=== PATIENT | female | born 1990 | race Caucasian/White ===

== ENCOUNTER 2019-07-14 02:39 | Emergency (ER) | payer MEDICAID, SELFPAY ==
[2019-07-14 02:40] VITALS: BP 121/103; PULSE 100; RESP 16; TEMP 36.6; O2SAT 97; BMI 20.9
--- NOTE | 2019-07-14 02:41 | PC.NURSE ---
EMS states patient has been having hallucinations, was found outside naked on a person's porch. EMS states patient was given clothes by the house she was stopped at. EMs states patient has not been answering many questions.Patient states that she was hearing voices earlier but is not hearing them now, patient thats that she is cold and does not remember how she got outside.
[2019-07-14 02:53] VITALS: PULSE 108; RESP 17; O2SAT 98
--- NOTE | 2019-07-14 02:53 | ED_ITS ---
Entered by Kassandra Cali, acting as scribe for New Tran DO Jul 14, 2019 02:39 HPI - Psych General: Chief Complaint: Psychiatric Symptoms Stated Complaint: HALLUCINATIONS Time Seen by Provider: 07/14/19 02:43 Source: patient Mode of arrival: ambulatory Limitations: no limitations History of Present Illness: HPI Narrative: 28 yo f came to the er for hallucinations. Onset was tonight. Pt states that she was seeing and hearing voices. Pt told ems that she snorted some white powder yesterday and that she was naked and going around knocking on neighbors doors. 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) History of same: No Relieving factors: none Exacerbating factors: none Associated symptoms: Reports visual hallucinations Treatments prior to arrival: none Review of Systems Const: Reports: chills; Denies: fever Eyes: Denies: eye discomfort ENMT: Denies: swelling of lips/tongue Card: Denies: chest pain or palpitations Resp: Denies: shortness of breath, productive cough or wheezing GI: Denies: abdominal pain or vomiting Neuro: Denies: headache or dizziness Psych: Reports: anxiety, visual hallucinations and tactile hallucinations PFSH ED PFSH: Statuses (acute, chronic, etc) shown below reflect problem list status as previously entered and may not be historically accurate Social History Smoking and tobacco status: current every day smoker Physical Exam Const: COMMON NORMALS: no apparent distress EXAM LIMITATIONS: altered mental status GENERAL APPEARANCE: comfortable, disheveled and lethargic (mildly); not well hydrated ORIENTATION/CONSCIOUSNESS: Yes awake and Yes lethargic (mildly) HENMT: FACE & SINUS: normal facial exam Chest: COMMONS NORMALS: inspection of chest normal Resp: COMMON NORMALS: normal respiratory effort, no retractions, no use of accessory muscles and clear to auscultation bilaterally AUSCULTATION: clear to auscultation bilaterally Cardio: COMMON NORMALS: regular rate and regular rhythm RATE: regular rate and not tachycardic RHYTHM: regular rhythm GI: COMMON NORMALS: soft to palpation and non-tender PALPATION: Yes soft Extremity: COMMON NORMALS: no pedal edema Neuro: SENSORIUM/ORIENTATION: Yes lethargic (mildly) Psych: COMMON NORMALS: speech normal, denies hallucinations and denies suicidal ideation APPEARANCE: Yes unkempt ACTIVITY/MOTOR BEHAVIOR: Yes appropriate eye contact and Yes restless SPEECH: Yes normal speech THOUGHT CONTENT: No suicidality, No homicidality and Yes hallucination(s) (previously was, now she denies, says this is improved) auditory and visual MDM - Psych MDM Narrative: Medical decision making narrative: 28-year-old female intoxicated on methamphetamine. Evidently, she had not done doors in a neighb orhood, and was found to be nearly unclothed on a porch. EMS was called. She stated that she had been having hallucinations, likely related to a white substance that she snorted yesterday. She is amphetamine positive. Her other labs are relatively benign. She is awake and talking. She is received a liter of fluid. She will be discharged to the custody of a responsible adult. She denies suicidality or homicidality. Lab Data: Labs: Lab Results 07/14/19 07/14/19 07/14/19 Range/Units 03:02 03:02 03:02 WBC 9.8 (4.0-10.0) 10^3/ uL RBC 4.92 (4.1-5.3) 10^6/u L Hgb 14.2 (11.5-15.3) g/dL Hct 43.9 (37.0-47.0) % MCV 89.2 (81-99) fL MCH 28.9 (28.0-34.0) pg MCHC 32.3 (30.0-36.0) g/dL RDW 12.3 (12.1-15.1) % Plt Count 346 (130-400) 10^3/c mm MPV 10.3 (7.4-10.4) fL Neut % (Auto) 64.8 % Lymph % (Auto) 27.9 % [place] % (Auto) 4.7 % Eos % (Auto) 1.4 % Baso % (Auto) 0.8 % Neut # (Auto) 6.3 (1.8-7.7) 10^3/u L Lymph # (Auto) 2.7 (0.8-4.8) 10^3/u L [place] # (Auto) 0.5 (0.2-0.9) 10^3/u L Eos # (Auto) 0.1 (0.0-0.8) 10^3/u L Baso # (Auto) 0.1 (0.0-0.1) 10^3/u L Nucleated RBC % (a uto) 0 % Nucleated RBCs # 0.0 /100WBC Sodium 137 (136-145) mmol/L Potassium 3.3 L (3.5-5.1) mmol/L Chloride 97 L (98-107) mmol/L Carbon Dioxide 22 (22-29) mmol/L Anion Gap 21.3 H (5-19) BUN 14 (6-20) mg/dL Creatinine 0.8 (0.5-0.9) mg/dL GFR Calculation 86.0 L (90-130) mL/min Glucose 95 (65-115) mg/dL Lactate 1.8 (0.5-2.2) mmol/L Calcium 10.4 (8.5-10.5) mg/dL Total Bilirubin 1.0 (0.15-1.2) mg/dL AST 18 (0-32) U/L ALT 12 (0-33) U/L Alkaline Phosphata se 114 H (35-105) IU/L Total Protein 8.0 (6.6-8.7) g/dL Albumin 4.3 (3.5-5.2) g/dL Globulin 3.7 (1.3-4.6) g/dL HCG, Qual (Negative) Urine Color (Yellow) Urine Appearance (CLEAR) Urine pH (5-7) Ur Specific Gravit y (1.005-1.030) Urine Protein (Negative) Urine Glucose (UA) (Normal) Urine Ketones (Negative) Urine Occult Blood (Negative) Urine Nitrate (Negative) Urine Bilirubin (NEGATIVE) Urine Urobilinogen (Negative) mg/dL Ur Leukocyte Evelia ase (Negative) Urine RBC (0-2) /hpf Urine WBC (0-5) /hpf Ur Squamous Epith Cells (0-5) Urine Bacteria (NONE) Urine Mucus Salicylates < 0.3 L (3-10) mg/dL Urine Opiates Scre en (Negative) ng/mL Acetaminophen < 5.0 L (10-30) ug/mL Ur Barbiturates Sc reen (Negative) ng/mL Ur Phencyclidine S crn (Negative) ng/mL Ur Amphetamines Sc reen (Negative) ng/mL U Benzodiazepines Scrn (Negative) ng/mL Urine Cocaine Scre en (Negative) ng/mL U Marijuana (THC) Screen (Negative) ng/mL Ethyl Alcohol < 10 (0-10) mg/dL 07/14/19 07/14/19 07/14/19 Range/Units 03:06 03:06 03:06 WBC (4.0-10.0) 10^3/ uL RBC (4.1-5.3) 10^6/u L Hgb (11.5-15.3) g/dL Hct (37.0-47.0) % MCV (81-99) fL MCH (28.0-34.0) pg MCHC (30.0-36.0) g/dL RDW (12.1-15.1) % Plt Count (130-400) 10^3/c mm MPV (7.4-10.4) fL Neut % (Auto) % Lymph % (Auto) % [place] % (Auto) % Eos % (Auto) % Baso % (Auto) % Neut # (Auto) (1.8-7.7) 10^3/u L Lymph # (Auto) (0.8-4.8) 10^3/u L [place] # (Auto) (0.2-0.9) 10^3/u L Eos # (Auto) (0.0-0.8) 10^3/u L Baso # (Auto) (0.0-0.1) 10^3/u L Nucleated RBC % (a uto) % Nucleated RBCs # /100WBC Sodium (136-145) mmol/L Potassium (3.5-5.1) mmol/L Chloride (98-107) mmol/L Carbon Dioxide (22-29) mmol/L Anion Gap (5-19) BUN (6-20) mg/dL Creatinine (0.5-0.9) mg/dL GFR Calculation (90-130) mL/min Glucose (65-115) mg/dL Lactate (0.5-2.2) mmol/L Calcium (8.5-10.5) mg/dL Total Bilirubin (0.15-1.2) mg/dL AST (0-32) U/L ALT (0-33) U/L Alkaline Phosphata se (35-105) IU/L Total Protein (6.6-8.7) g/dL Albumin (3.5-5.2) g/dL Globulin (1.3-4.6) g/dL HCG, Qual Negative (Negative) Urine Color Yellow (Yellow) Urine Appearance Cloudy (CLEAR) Urine pH 5 (5-7) Ur Specific Gravit y 1.025 (1.005-1.030) Urine Protein Neg (Negative) Urine Glucose (UA) Norm (Normal) Urine Ketones 1+ H (Negative) Urine Occult Blood 2+ H (Negative) Urine Nitrate Negative (Negative) Urine Bilirubin 1+ H (NEGATIVE) Urine Urobilinogen 1 H (Negative) mg/dL Ur Leukocyte Evelia ase 1+ H (Negative) Urine RBC 0-4 H (0-2) /hpf Urine WBC 10-15 H (0-5) /hpf Ur Squamous Epith Cells 0-4 H (0-5) Urine Bacteria 1+ H (NONE) Urine Mucus 2+ Salicylates (3-10) mg/dL Urine Opiates Scre en Negative (Negative) ng/mL Acetaminophen (10-30) ug/mL Ur Barbiturates Sc reen Negative (Negative) ng/mL Ur Phencyclidine S crn Negative (Negative) ng/mL Ur Amphetamines Sc reen Positive H (Negative) ng/mL U Benzodiazepines Scrn Negative (Negative) ng/mL Urine Cocaine Scre en Negative (Negative) ng/mL U Marijuana (THC) Screen Negative (Negative) ng/mL Ethyl Alcohol (0-10) mg/dL Discharge Plan Discharge Patient Disposition: Home, Self-Care Clinical Impression: Substance abuse, Acute psychosis Condition: Stable Prescriptions: No Action No Known Home Medications RF: 0 Discharge Orders: Discharge Order (Routine); Ordered 07/14/19 Ordered By: New Tran Referrals: Charito Burroughs MD [Family Provider] - Discharge Diet: Usual diet Discharge Activity: Increase activity as tolerated Patient Instructions: Methamphetamine Abuse (ED) Activity Restrictions/Additional Instructions: You may be discharged to the custody of a responsible adult. Return to the emergency department for thoughts or wishes to harm your self or others. Coding Level of Care Code ED Cnc Mechanic for Chg Fwd Exam Problem Focused The documentation recorded by the Viraj givens Stephanie Lyn, accurately reflects the service I personally performed and the decisions made by Marc bob Jeremy John, DO Jul 14, 2019 02:39
[2019-07-14 03:14] LABS: Basophils # 0.1 10^3/uL (0.0-0.1); Basophils % 0.8 %; Eosinophils # 0.1 10^3/uL (0.0-0.8); Eosinophils % 1.4 %; Hematocrit 43.9 % (37.0-47.0); Hemoglobin 14.2 g/dL (11.5-15.3); Lymphocytes # 2.7 10^3/uL (0.8-4.8); Lymphocytes % 27.9 %; Mean Corpuscular HGB Conc 32.3 g/dL (30.0-36.0); Mean Corpuscular Hemoglobin 28.9 pg (28.0-34.0); Mean Corpuscular Volume 89.2 fL (81-99); Mean Platelet Volume 10.3 fL (7.4-10.4); Monocytes # 0.5 10^3/uL (0.2-0.9); Monocytes % 4.7 %; Neutrophils # 6.3 10^3/uL (1.8-7.7); Neutrophils % 64.8 %; Nucleated Red Blood Cells % 0 %; Platelet Count 346 10^3/cmm (130-400); Red Blood Count 4.92 10^6/uL (4.1-5.3); Red Cell Distribution Width 12.3 % (12.1-15.1); White Blood Count 9.8 10^3/uL (4.0-10.0)
[2019-07-14 03:29] LABS: Add Urine Microscopic? YES; Bilirubin Urine 1+ (NEGATIVE); Blood Urine 2+ (Negative); Glucose Urine UA Norm (Normal); Ketones Urine 1+ (Negative); Leukocyte Esterase Urine 1+ (Negative); Nitrate Urine Negative (Negative); Protein Urine Neg (Negative); Specific Gravity, Urine 1.025 (1.005-1.030); Urine Appearance Cloudy (CLEAR); Urine Color Yellow (Yellow); Urobilinogen Urine 1 mg/dL (Negative); pH Urine 5 (5-7)
[2019-07-14 03:30] LABS: Bacteria Urine 1+; HCG Qualitative Urine. Negative (Negative); Mucus Urine 2+; RBC Urine 0-4 /hpf (0-2); Squamous Epithelial Cell Urine 0-4 (0-5)
[2019-07-14 03:38] LABS: Lactate (Lactic Acid level) 1.8 mmol/L (0.5-2.2)
[2019-07-14 03:39] LABS: Alanine Aminotransferase 12 U/L (0-33); Albumin Level 4.3 g/dL (3.5-5.2); Alkaline Phosphatase 114 IU/L (35-105); Anion Gap 21.3 (5-19); Aspartate Amino Transferase 18 U/L (0-32); Blood Urea Nitrogen 14 mg/dL (6-20); Calcium 10.4 mg/dL (8.5-10.5); Carbon Dioxide 22 mmol/L (22-29); Chloride 97 mmol/L (98-107); Globulin 3.7 g/dL (1.3-4.6); Glucose 95 mg/dL (65-115); Potassium 3.3 mmol/L (3.5-5.1); Sodium 137 mmol/L (136-145)
[2019-07-14] MEDS: sodium chloride 0.9% 1,000 ML 999 ML IV (03:39)
[2019-07-14 03:40] LABS: Barbiturates Screen Urine Negative (Negative); Benzodiazepines Screen Urine Negative (Negative); Cocaine Screen Urine Negative (Negative); Opiate Screen Urine Negative (Negative); PCP Screen Urine Negative (Negative); THC Screen Urine Negative (Negative)
--- NOTE | 2019-07-14 03:45 | PC.NURSE ---
patient requested food and was brought food and water by the nurse
[2019-07-14 03:50] LABS: Acetaminophen < 5.0 ug/mL (10-30); Alcohol Level < 10 mg/dL (0-10); Salicylate < 0.3 mg/dL (3-10)
[2019-07-14 03:52] LABS: Amphetamines Screen Urine Positive (Negative)
--- NOTE | 2019-07-14 05:48 | PC.NURSE ---
patient oxygen titrated up to 4 liters
--- NOTE | 2019-07-14 05:48 | PC.NURSE ---
oxygen titrated up to 5 liters for optimal oxygenation of patient
[2019-07-14 06:35] VITALS: BP 108/60; PULSE 94; RESP 16; O2SAT 97
--- NOTE | 2019-07-14 07:49 | PC.NURSE ---
Patient resting in bed with both eyes closed. Attempted to contact Alphonso Garcia, whom patient stated was her uyen at , there is no answer and no voicemail set up to leave a message.
[2019-07-14 09:01] VITALS: BP 116/79; PULSE 104; RESP 14; TEMP 36.8; O2SAT 98
== END 2019-07-14 09:03 | disposition home or self-care (01) ==
PROVIDERS: Emergency Provider Emergency Medicine; Family Provider Family Medicine
DX: F15.10 Other stimulant abuse, uncomplicated (principal); F23 Brief psychotic disorder; F17.210 Nicotine dependence, cigarettes, uncomplicated
CPT/HCPCS: 80053; 80307; 81001; 81025; 83605; 85025; 96360; 99284; A9270; J7030

== ENCOUNTER 2019-09-24 00:09 | Inpatient (IN) | payer MEDICAID, SELFPAY ==
[2019-09-24 00:18] VITALS: BP 130/86; PULSE 93; RESP 16; TEMP 36.6; O2SAT 98; BMI 20.9
--- NOTE | 2019-09-24 00:30 | ECG_ITS ---
Measurements Intervals [place] Rate: 95 P: 51 KS: 171 QRS: 53 QRSD: 76 T: 52 QT: 361 QTc: 456 SINUS RHYTHM POSSIBLE LEFT ATRIAL ENLARGEMENT [-0.1mV P WAVE IN V1/V2] Compared to ECG 04/17/2019 18:15:48 Sinus tachycardia no longer present Electronically Signed On 09-25-2019 6:44:43 CDT by Zak Mo M.D. [email or web address]
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
[2019-09-24 00:49] LABS: Basophils # 0.1 10^3/uL (0.0-0.1); Basophils % 0.6 %; Eosinophils # 0.1 10^3/uL (0.0-0.8); Eosinophils % 0.8 %; Hematocrit 42.3 % (37.0-47.0); Hemoglobin 13.7 g/dL (11.5-15.3); Lymphocytes # 3.1 10^3/uL (0.8-4.8); Lymphocytes % 27.6 %; Mean Corpuscular HGB Conc 32.4 g/dL (30.0-36.0); Mean Corpuscular Hemoglobin 29.8 pg (28.0-34.0); Mean Platelet Volume 10.2 fL (7.4-10.4); Monocytes # 0.7 10^3/uL (0.2-0.9); Monocytes % 6.2 %; Neutrophils # 7.3 10^3/uL (1.8-7.7); Neutrophils % 64.5 %; Nucleated Red Blood Cells % 0 %; Platelet Count 314 10^3/cmm (130-400); Red Cell Distribution Width 12.9 % (12.1-15.1); White Blood Count 11.4 10^3/uL (4.0-10.0)
[2019-09-24 00:57] LABS: HCG, Serum Qual Negative (Negative)
[2019-09-24 01:03] LABS: Alanine Aminotransferase 10 U/L (0-33); Albumin Level 4.6 g/dL (3.5-5.2); Alkaline Phosphatase 104 IU/L (35-105); Anion Gap 18.6 (5-19); Aspartate Amino Transferase 19 U/L (0-32); Blood Urea Nitrogen 22 mg/dL (6-20); Calcium 10.3 mg/dL (8.5-10.5); Carbon Dioxide 23 mmol/L (22-29); Chloride 101 mmol/L (98-107); Globulin 2.9 g/dL (1.3-4.6); Glomerular Filtration Rate 74.6 mL/min (90-130); Glucose 88 mg/dL (65-115); Osmolality Calculated 284 mOsm/kg (285-295); Potassium 3.6 mmol/L (3.5-5.1); Sodium 139 mmol/L (136-145); Total Bilirubin 0.4 mg/dL (0.15-1.2); Total Protein 7.5 g/dL (6.6-8.7)
[2019-09-24 01:06] LABS: Acetaminophen < 5.0 ug/mL (10-30); Alcohol Level < 10 mg/dL (0-10); Salicylate < 0.3 mg/dL (3-10); Troponin T (5th) Once 7 ng/mL (0-10)
[2019-09-24 01:11] LABS: Amphetamines Screen Urine Positive (Negative); Barbiturates Screen Urine Negative (Negative); Benzodiazepines Screen Urine Negative (Negative); Cocaine Screen Urine Negative (Negative); Opiate Screen Urine Negative (Negative); PCP Screen Urine Negative (Negative); THC Screen Urine Negative (Negative)
[2019-09-24 02:50] VITALS: BMI 20.9
[2019-09-24 03:03] VITALS: BP 123/65; PULSE 108; RESP 18; TEMP 36.8; O2SAT 99
[2019-09-24 03:09] VITALS: BP 116/60; PULSE 84; RESP 14; O2SAT 99
[2019-09-24 06:00] VITALS: BP 123/65; PULSE 108; RESP 18; TEMP 36.8; O2SAT 99
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
[2019-09-24 14:00] VITALS: BP 94/62; PULSE 80; RESP 18; TEMP 37.1; O2SAT 99
[2019-09-24] MEDS: nicotine 2 mg Gum BUCCAL ×2 (17:56→20:47)
[2019-09-24 22:00] VITALS: BP 94/62; PULSE 86; RESP 17; TEMP 36.7; O2SAT 97
[2019-09-25 06:00] VITALS: BP 113/66; PULSE 69; RESP 16; TEMP 36.7; O2SAT 93
[2019-09-25] MEDS: sertraline 50 mg Tablet PO (09:06)
[2019-09-25 13:22] VITALS: BP 113/72; PULSE 76; RESP 18; TEMP 37; O2SAT 100
--- NOTE | 2019-09-25 14:30 | PM.NPN ---
Subjective NPU Subjective: Interval history: Jen presents today reporting that she is really excited about the fact that [facility] has started reconsidering its situation and plans on accepting her as a patient on Sunday. She is managing the restarting of her medication and saying there are no side effects, and she is tolerating it fine. We discussed the risks, benefits, and alternatives of managing her until Sunday when they will have the bed available, versus discharge, and she understood and agreed to proceed as is documented in this note. She was concerned about a close friend that is on the unit and hoping that we might find a similar resource for him. Mental Status Exam MSE Comments: This is a well-nourished, well-developed, white female, with adequate dress, grooming, and eye contact. No abnormal movements. Cooperative with exam in no acute distress. Speech was normal rate and volume. Mood described as better; affect congruent. Thought process, organized. Thought content: patient denied any suicidal or homicidal ideation, there were no delusions reported or noted, she denied any auditory or visual hallucinations. Attention, concentration, and memory appeared intact but were not formally tested. She is alert and oriented times three. Insight and judgment are good. Vitals/I&O/Wt Last Vital Signs Temp 98.7 F 09/25/19 20:26 Pulse 76 09/25/19 20:26 Resp 17 09/25/19 20:26 BP 121/85 09/25/19 20:26 Pulse Ox 98 09/25/19 20:26 Data NPU : 09/24/19 00:40 09/24/19 00:40 A&P Additional A&P Information (1) Methamphetamine use: This is a 29 year old, white female, with history of depressive and anxiety disorder, unspecified, methamphetamine use disorder, severe, rule out methamphetamine induced mood and anxiety disorders, who presents with a recent relapse and suicidal thoughts hoping to get her recovery back on track. continue current medication. Encourage individual and milieu therapies. Continue q 15-minute checks for safety. Work to maintain until discharge to [facility] Sunday (2) Suicidal ideation: (3) Depression: Involuntary Hold Information 96 Hour Hold: 96 Hour Involuntary Admission: No Attestations NPU Medical Necessity Statement*: Inpatient hospitalization is medically necessary and the clinically appropriate intervention at this time. We will monitor medications and titrate as indicated. Plan for discharge 4/28. Coding Level of Care Code Acute Pricing Strategist for Yoel Frausto
[2019-09-25] MEDS: nicotine 2 mg Gum BUCCAL (17:05)
[2019-09-25 20:26] VITALS: BP 121/85; PULSE 76; RESP 17; TEMP 37.1; O2SAT 98
[2019-09-26 06:00] VITALS: BP 112/73; PULSE 56; RESP 16; TEMP 36.9; O2SAT 98
[2019-09-26] MEDS: sertraline 50 mg Tablet PO (09:05)
--- NOTE | 2019-09-26 10:17 | P.PN_ITS ---
Subjective NPU Subjective: Interval history: Jen presents today reporting that she is feeling okay/a little better, and she is excited about the opportunity to stay here until Sunday when she goes to rehab. She endorses a plan to do the time there and follow that up with some kind of sober living, maybe even a really skilled nursing one in hopes that she can ultimately avoid repeating history. She reports she is eating okay, and she is sleeping better. Mental Status Exam MSE Comments: This is a well-nourished, well-developed, white female, with adequate dress, grooming, and eye contact. No abnormal movements. Cooperative with exam in no acute distress. Speech was normal rate and volume. Mood described as a lot better; affect congruent. Thought process, organized. Thought content: patient denied any suicidal or homicidal ideation, there were no delusions reported or noted, patient denied any auditory or visual hallucinations. Attention, concentration, and memory appeared intact but were not formally tested. Alert and oriented times three. Insight and judgment are fair. Impulse control limited. Vitals/I&O/Wt Last Vital Signs Temp 98.4 F 09/26/19 21: Pulse 70 09/26/19 21:22 Resp 18 09/26/19 21:22 BP 132/90 09/26/19 21: Pulse Ox 98 09/26/19 21:22 Data NPU : 09/24/19 00:40 09/24/19 00:40 A&P Additional A&P Information (1) Methamphetamine use: This is a 29 year old, white female, with history of depressive and anxiety disorder, unspecified, methamphetamine use disorder, severe, rule out methamphetamine induced mood and anxiety disorders, who presents with a recent relapse and suicidal thoughts hoping to get her recovery back on track. continue current medication. Encourage individual and milieu therapies. Continue q 15-minute checks for safety. Work to maintain until discharge to [facility] Sunday (2) Suicidal ideation: (3) Depression: Involuntary Hold Information 96 Hour Hold: 96 Hour Involuntary Admission: No Attestations NPU Medical Necessity Statement*: Inpatient hospitalization is medically necessary and the clinically appropriate intervention at this time. We will monitor medications and titrate as indicated. Plan for discharge 09/29. Coding Level of Care Code Acute Applique Cutter for Yoel Frausto
[2019-09-26 13:07] VITALS: BP 116/78; PULSE 82; RESP 18; TEMP 37; O2SAT 98
[2019-09-26 21:22] VITALS: BP 132/90; PULSE 70; RESP 18; TEMP 36.9; O2SAT 98
[2019-09-27 06:00] VITALS: BP 110/65; PULSE 64; RESP 18; TEMP 37; O2SAT 97
[2019-09-27 14:00] VITALS: BP 126/84; PULSE 97; RESP 18; O2SAT 98
[2019-09-27] MEDS: nicotine 2 mg Gum BUCCAL (17:56)
--- NOTE | 2019-09-27 19:17 | P.PN_ITS ---
Subjective NPU Subjective: Interval history: Jen presents today reporting that she is feeling better each day. She continues to feel optimistic about her plans for turning her life around. She is looking forward to getting through the boring monotony of the unit, given the COVID circumstances, with a plan to get to treatment and ultimately sober living after that. She denies any issues with restarting of Zoloft and reports that she is eating and sleeping well. Mental Status Exam MSE Comments: This is a well-nourished, well-developed, white female, with adequate dress, grooming, and eye contact. No abnormal movements. Cooperative with exam in no acute distress. Speech was normal rate and volume. Mood described as pretty good; affect congruent. Thought process, organized. Thought content: patient denied any suicidal or homicidal ideation, there were no delusions reported or noted, patient denied any auditory or visual hallucinations. Attention, concentration, and memory appeared intact but were not formally tested. Alert and oriented times three. Insight and judgment are improving and impulse control improving. Vitals/I&O/Wt Last Vital Signs Temp 98.6 F 09/27/19 06:00 Pulse 97 09/27/19 14:00 Resp 18 09/27/19 14:00 BP 126/84 09/27/19 14:00 Pulse Ox 98 09/27/19 14:00 Data NPU : 09/24/19 00:40 09/24/19 00:40 A&P Additional A&P Information (1) Methamphetamine use: This is a 29 year old, white female, with history of depressive and anxiety disorder, unspecified, methamphetamine use disorder, severe, rule out methamphetamine induced mood and anxiety disorders, who presents with a recent relapse and suicidal thoughts hoping to get her recovery back on track. continue current medication. Encourage individual and milieu therapies. Continue q 15-minute checks for safety. Work to maintain until discharge to [facility] Sunday (2) Suicidal ideation: (3) Depression: Involuntary Hold Information 96 Hour Hold: 96 Hour Involuntary Admission: No Attestations NPU Medical Necessity Statement*: Inpatient hospitalization is medically necessary and the clinically appropriate intervention at this time. We will monitor medications and titrate as indicated. Plan for discharge 09/29. Coding Level of Care Code Acute Television Engineering Teacher for Yoel Frausto
[2019-09-27] MEDS: hyDROXYzine 25 mg Capsule 50 MG PO (20:15)
[2019-09-27] MEDS: trazodone 50 mg Tablet PO (20:15)
--- NOTE | 2019-09-27 21:09 | PC.NURSE ---
PRN MEDICATIONS PRN TRAZODONE 50 MG AND HYDROXYZINE 50 MG GIVEN PER ORDERS AT 2018 PER PtS REQUEST TO HELP THEM SLEEP. THIS NURSE CHECKED ON Pt AT 2105, Pt RESTING IN BED, EYES CLOSED, RESPIRATIONS EVEN AND UNLABORED.
[2019-09-27 22:00] VITALS: BP 104/71; PULSE 72; RESP 16; TEMP 37; O2SAT 98
[2019-09-28 06:00] VITALS: BP 103/66; PULSE 63; RESP 16; TEMP 36.1; O2SAT 97
[2019-09-28 14:00] VITALS: BP 132/89; PULSE 88; RESP 18
--- NOTE | 2019-09-28 17:11 | PM.NPN ---
Subjective NPU Subjective: Interval history: Jen presents today reporting that it is boring, but she knows that this is the path to her getting where she needs to be. She was somewhat saddened by the fact that she figured out that her ?cousin/really close friend? that was on the male side left prior to really getting tied with inpatient services and she really wished he would have stayed because she feels like he is dealing with the same stuff she is dealing with, and she does not feel like he will be able to do it independently, but as we discussed we are not going anywhere and if he comes back we can continue to assist him. She continues to endorse a plan to follow through with our plan for discharge on Sunday to inpatient rehab. She denies any issues with her medication. Mental Status Exam MSE Comments: This is a well-nourished, well-developed, white female, with adequate dress, grooming, and eye contact. No abnormal movements. Cooperative with exam in no acute distress. Speech was normal rate and volume. Mood described as pretty good; affect congruent. Thought process, organized. Thought content: patient denied any suicidal or homicidal ideation, there were no delusions reported or noted, patient denied any auditory or visual hallucinations. Attention, concentration, and memory appeared intact but were not formally tested. Alert and oriented times three. Insight and judgment are good. Vitals/I&O/Wt Last Vital Signs Temp 97 F L 09/28/19 06:00 Pulse 88 09/28/19 14:00 Resp 18 09/28/19 14:00 BP 132/89 09/28/19 14:00 Pulse Ox 97 09/28/19 06:00 Weight last 48 hrs Weight 70.307 kg Data NPU : 09/24/19 00:40 09/24/19 00:40 A&P Additional A&P Information (1) Methamphetamine use: This is a 29 year old, white female, with history of depressive and anxiety disorder, unspecified, methamphetamine use disorder, severe, rule out methamphetamine induced mood and anxiety disorders, who presents with a recent relapse and suicidal thoughts hoping to get her recovery back on track. continue current medication. Encourage individual and milieu therapies. Continue q 15-minute checks for safety. Work to maintain until discharge to [facility] Sunday (2) Suicidal ideation: (3) Depression: Involuntary Hold Information 96 Hour Hold: 96 Hour Involuntary Admission: No Attestations NPU Medical Necessity Statement*: Inpatient hospitalization is medically necessary and the clinically appropriate intervention at this time. We will monitor medications and titrate as indicated. Plan for discharge 09/29. Coding Level of Care Code Acute Sow Farm Barn Technician for Yoel Frausto
[2019-09-28] MEDS: trazodone 50 mg Tablet PO (20:20)
[2019-09-28 22:00] VITALS: BP 101/64; PULSE 70; RESP 22; TEMP 37; O2SAT 97
[2019-09-29 06:00] VITALS: BP 91/59; PULSE 69; RESP 18; TEMP 36.9; O2SAT 98
--- NOTE | 2019-09-29 09:13 | PM.NPN ---
Subjective NPU Subjective: Interval history: Jen presents today reporting that things are going fine. She was somewhat overwhelmed by the activities on the unit but endorsed that she was fine. She is excited about the opportunity to go to the sober living facility tomorrow, and she is thankful for the treatment teams continued efforts with her. She reports that she is eating and sleeping fine. Mental Status Exam MSE Comments: This is a well-nourished, well-developed, white female, with adequate dress, grooming, and eye contact. No abnormal movements. Cooperative with exam in no acute distress. Speech was normal rate and volume. Mood described as pretty good; affect congruent. Thought process, organized. Thought content: patient denied any suicidal or homicidal ideation, there were no delusions reported or noted, she denied any auditory or visual hallucinations. Attention, concentration, and memory appeared intact but were not formally tested. She is alert and oriented times three. Insight and judgment are fair to good. Vitals/I&O/Wt Last Vital Signs Temp 98.6 F 09/29/19 21:37 Pulse 76 09/29/19 21:37 Resp 17 09/29/19 21:37 BP 102/70 09/29/19 21:37 Pulse Ox 97 09/29/19 21:37 Data NPU : 09/24/19 00:40 09/24/19 00:40 A&P Additional A&P Information (1) Methamphetamine use: This is a 29 year old, white female, with history of depressive and anxiety disorder, unspecified, methamphetamine use disorder, severe, rule out methamphetamine induced mood and anxiety disorders, who presents with a recent relapse and suicidal thoughts hoping to get her recovery back on track. continue current medication. Encourage individual and milieu therapies. Continue q 15-minute checks for safety. Work to maintain until discharge to [facility] Tomorrow (2) Suicidal ideation: (3) Depression: Involuntary Hold Information 96 Hour Hold: 96 Hour Involuntary Admission: No Attestations NPU Medical Necessity Statement*: Inpatient hospitalization is medically necessary and the clinically appropriate intervention at this time. We will monitor medications and titrate as indicated. Plan for discharge tomorrow. Coding Level of Care Code Acute Junior Sales Assistant for Yoel Frausto
[2019-09-29 13:55] VITALS: BP 105/70; PULSE 84; RESP 18; TEMP 36.8; O2SAT 98
[2019-09-29] MEDS: hyDROXYzine 25 mg Capsule 50 MG PO (20:40)
--- NOTE | 2019-09-29 21:13 | PC.NURSE ---
At 2046, pt given PRN Vistril to aide in sleep.
[2019-09-29 21:37] VITALS: BP 102/70; PULSE 76; RESP 17; TEMP 37; O2SAT 97
[2019-09-30 06:00] VITALS: BP 110/74; PULSE 56; RESP 16; TEMP 36.8; O2SAT 99
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
[2019-09-30 10:48] VITALS: BP 110/74; PULSE 56; RESP 16; TEMP 36.8; O2SAT 99
[2019-09-30] MEDS: sertraline 50 mg Tablet PO (10:53)
== END 2019-09-30 11:15 | disposition home or self-care (01) | DRG 897 ==
LOC: ER 01:29 → NP 02:24
PROVIDERS: Admitting Provider Psychiatry & Neurology Psychiatry; Emergency Provider Physician Assistant; Family Provider Family Medicine; Visit Provider Psychiatry & Neurology Psychiatry
DX: F15.229 Other stimulant dependence with intoxication, unspecified (principal); R45.851 Suicidal ideations; F32.9 Major depressive disorder, single episode, unspecified; F17.210 Nicotine dependence, cigarettes, uncomplicated
CPT/HCPCS: 12345; 80053; 80306; 80307; 84484; 84703; 85025; 93005; 99284

== ENCOUNTER 2019-09-24 00:09 | Emergency (ER) | payer MEDICAID, SELFPAY | END 2019-09-24 02:30 | disposition admitted as inpatient to this hospital (09) | LOC: ER 09-26 06:53 | PROVIDERS: Emergency Provider Physician Assistant; Family Provider Family Medicine | DX: R45.851 Suicidal ideations (principal); F15.90 Other stimulant use, unspecified, uncomplicated; F17.210 Nicotine dependence, cigarettes, uncomplicated | CPT/HCPCS: 80053; 80306; 80307; 84484; 84703; 85025; 93005; 99284; 99285 ==

== ENCOUNTER → 2019-10-31 15:18 | Outpatient (BNVA) | payer MEDICAID, SELFPAY | PROVIDERS: Family Provider Family Medicine; Visit Provider Nurse Practitioner Women's Health | DX: Z32.00 Encounter for pregnancy test, result unknown (principal); Z30.46 Encounter for surveillance of implantable subdermal contraceptive; Z30.09 Encounter for other general counseling and advice on contraception | CPT/HCPCS: 81025 ==

== ENCOUNTER 2019-12-15 20:36 | Inpatient (IN) | payer MEDICAID, SELFPAY ==
--- NOTE | 2019-12-15 20:44 | XRR_ITS ---
PROCEDURE INFORMATION: Exam: XR Chest, 1 View Exam date and time: 12/15/2019 9:22 PM Age: 29 years old Clinical indication: Fever; Additional info: Fever, hallucinations TECHNIQUE: Imaging protocol: XR of the chest Views: Frontal portable upright view of the chest. COMPARISON: CR Chest 1 [place] [id number] 04/05/2019 11:53 PM FINDINGS: Lungs: The lungs are clear bilaterally. The pulmonary vasculature is normal. Pleural space: No pleural effusion. No pneumothorax. Heart/Mediastinum: The heart is normal in size and contour. Mediastinum: Stable. Bones/joints: Stable. XR/XR chest 1V portable [id number] IMPRESSION: No acute cardiopulmonary abnormality identified.
[2019-12-15 21:01] LABS: Basophils # 0.1 10^3/uL (0.0-0.1); Basophils % 0.8 %; Eosinophils # 0.2 10^3/uL (0.0-0.8); Eosinophils % 2.5 %; Hematocrit 47.1 % (37.0-47.0); Hemoglobin 15.6 g/dL (11.5-15.3); Lymphocytes # 3.6 10^3/uL (0.8-4.8); Lymphocytes % 37.6 %; Mean Corpuscular HGB Conc 33.1 g/dL (30.0-36.0); Mean Corpuscular Hemoglobin 30.8 pg (28.0-34.0); Mean Corpuscular Volume 93.1 fL (81-99); Mean Platelet Volume 10.2 fL (7.4-10.4); Monocytes # 0.7 10^3/uL (0.2-0.9); Neutrophils # 5.03 10^3/uL (1.8-7.7); Neutrophils % 51.9 %; Nucleated Red Blood Cells % 0 %; Platelet Count 315 10^3/cmm (130-400); Red Blood Count 5.06 10^6/uL (4.1-5.3); Red Cell Distribution Width 12.4 % (12.1-15.1); White Blood Count 9.7 10^3/uL (4.0-10.0)
[2019-12-15 21:06] VITALS: BP 129/93; PULSE 104; RESP 14; TEMP 36.8; O2SAT 98; BMI 23.3
[2019-12-15 21:21] LABS: Lactic Sepsis W/Reflex 1.5 mmol/L (0.5-2.2)
[2019-12-15 21:28] VITALS: RESP 16
[2019-12-15 21:29] LABS: HCG, Serum Qual Negative (Negative)
--- NOTE | 2019-12-15 21:29 | W.ED.PSYCH ---
HPI - Psych General: Chief Complaint: Psychiatric Symptoms Stated Complaint: fever, hallucinations Time Seen by Provider: 12/15/19 21:16 Source: patient Mode of arrival: ambulatory Limitations: no limitations History of Present Illness: HPI Narrative: Patient is a 29-year-old female who presents to ED today with a complaint of auditory and visual hallucinations. Patient tells me she is having voices that are telling her to take her clothes off and telling her to harm herself. She states when she looks at people their faces often change. She states her face also will change when she looks in different mirrors. She states she feels suicidal and has a plan to place her head on railroad tracks so her head can bounce around like a soccer ball . Patient is not homicidal. She does admit to recent methamphetamine relapse. She states she has been off of her Zoloft, Hydroxyzine and Remeron for approximately a month. Patient does complain of feeling hot over the past few weeks. She has no known documented fevers. MD complaint: suicidal ideation, feels depressed and other (hallucinations ) Onset (ago): day(s) Duration: constant History of same: Yes Relieving factors: none Exacerbating factors: none Context: recent drug abuse and not taking psychiatric medications Associated symptoms: Reports auditory hallucinations, visual hallucinations, depression and suicidal ideation; Deny homicidal ideation Review of Systems Const: Denies: fever(s), chills, body aches, fatigue or malaise Card: Denies: chest pain, palpitations, lightheadedness or syncope Resp: Denies: dyspnea GI: Denies: abdominal pain, nausea, vomiting or diarrhea Musc: Denies: neck pain or back pain Skin/Breast: Denies: rash Neuro: Denies: headache(s) Psych: Reports: anxiety, depression, hopelessness, visual hallucinations, auditory hallucinations and suicidal ideation; Denies: homicidal ideation [facility] ED PFSH: Medical History (Updated 12/15/19 @ 23:53 by ALYSSA Arellano) Depression Methamphetamine use Surgical History (Updated 10/31/19 @ 15:27 by Lisa Freedman APN, ISHAN) H/O pelvic surgery (~2018) fractured pelvis, skull, neck--- only pelvis needed repair Family History (Updated 10/31/19 @ 15:28 by Lisa Freedman APN, ISHAN) Mother Cancer B- cell lymphoma Father Cancer Lung CA Hypertension Denies family history of Diabetes Clotting disorder Hyperlipidemia Chronic kidney disease (CKD) Bleeding disorder Stroke Social History Smoking and tobacco status: current some day smoker Quit status (tobacco): has quit using tobacco Year quit tobacco: 09/2019 Alcohol intake: never Current gender identity: Female Physical Exam Const: COMMON NORMALS: no acute distress, patient oriented x3, alert and well nourished GENERAL APPEARANCE: cooperative and well kempt Resp: COMMON NORMALS: normal respiratory effort and clear to auscultation bilaterally AUSCULTATION: clear to auscultation bilaterally Cardio: COMMON NORMALS: regular rate and regular rhythm RATE: regular rate RHYTHM: regular rhythm Neuro: COMMON NORMALS: patient oriented x3 SENSORIUM/ORIENTATION: Yes alert Psych: COMMON NORMALS: mental status grossly normal, Normal thought process present, cooperative, normal affect, speech normal and activity/motor behavior normal APPEARANCE: Yes grossly normal and Yes well kempt ATTITUDE: Yes calm ACTIVITY/MOTOR BEHAVIOR: No psychomotor agitation and Yes Avoids eye contact (attititude/behavior) SPEECH: Yes normal speech MOOD & AFFECT: Yes euthymic mood THOUGHT PROCESS: Normal thought process present THOUGHT CONTENT: Yes Normal thought content present and Yes Suicidality present ATTENTION/CONCENTRATION: Yes attention grossly intact and Yes concentration grossly intact MEMORY/COGNITION: Yes memory grossly intact and Yes cognition grossly intact INSIGHT: Good insight present (Psych) and Fair insight present (Psych) JUDGEMENT: Fair judgement present (Psych) MDM - Psych Lab Data: Labs: Lab Results 12/15/19 12/15/19 12/15/19 Range/Units 20:55 20:55 20:55 WBC 9.7 (4.0-10.0) 10^3/ uL RBC 5.06 (4.1-5.3) 10^6/u L Hgb 15.6 H (11.5-15.3) g/dL Hct 47.1 H (37.0-47.0) % MCV 93.1 (81-99) fL MCH 30.8 (28.0-34.0) pg MCHC 33.1 (30.0-36.0) g/dL RDW 12.4 (12.1-15.1) % Plt Count 315 (130-400) 10^3/c mm MPV 10.2 (7.4-10.4) fL Neut % (Auto) 51.9 % Lymph % (Auto) 37.6 % [place] % (Auto) 7.0 % Eos % (Auto) 2.5 % Baso % (Auto) 0.8 % Neut # (Auto) 5.03 (1.8-7.7) 10^3/u L Lymph # (Auto) 3.6 (0.8-4.8) 10^3/u L [place] # (Auto) 0.7 (0.2-0.9) 10^3/u L Eos # (Auto) 0.2 (0.0-0.8) 10^3/u L Baso # (Auto) 0.1 (0.0-0.1) 10^3/u L Nucleated RBC % (a uto) 0 % Nucleated RBCs # 0.0 /100WBC Sodium 138 (136-145) mmol/L Potassium 4.0 (3.5-5.1) mmol/L Chloride 102 (98-107) mmol/L Carbon Dioxide 25 (22-29) mmol/L Anion Gap 15.0 (5-19) BUN 12 (6-20) mg/dL Creatinine 0.8 (0.5-0.9) mg/dL GFR Calculation 85.4 L (90-130) mL/min Glucose 95 (65-115) mg/dL Calculated Osmolal ity 282 L (285-295) mOsm/k g Lactic Acid 1.5 (0.5-2.2) mmol/L Calcium 10.2 (8.5-10.5) mg/dL Magnesium 1.9 (1.7-2.3) mg/dL Total Bilirubin 0.2 (0.15-1.2) mg/dL AST 25 (0-32) U/L ALT 27 (0-33) U/L Alkaline Phosphata se 101 (35-105) IU/L Total Protein 7.7 (6.6-8.7) g/dL Albumin 4.8 (3.5-5.2) g/dL Globulin 2.9 (1.3-4.6) g/dL TSH 1.84 (0.27-4.20) uIU/ mL Free T4 1.72 (0.82-1.77) ng/d L HCG, Qual (Negative) Urine Color (Yellow) Urine Appearance (CLEAR) Urine pH (5-7) Ur Specific Gravit y (1.005-1.030) Urine Protein (Negative) Urine Glucose (UA) (Normal) Urine Ketones (Negative) Urine Blood (Negative) Urine Nitrate (Negative) Urine Bilirubin (NEGATIVE) Urine Urobilinogen (Negative) mg/dL Ur Leukocyte Evelia ase (Negative) Urine RBC (0-2) /hpf Urine WBC (0-5) /hpf Ur Squamous Epith Cells (0-5) Amorphous Sediment Urine Bacteria (NONE) Salicylates (3-10) mg/dL Urine Opiates Scre en (Negative) ng/mL Acetaminophen (10-30) ug/mL Ur Barbiturates Sc reen (Negative) ng/mL Ur Phencyclidine S crn (Negative) ng/mL Ur Amphetamines Sc reen (Negative) ng/mL U Benzodiazepines Scrn (Negative) ng/mL Urine Cocaine Scre en (Negative) ng/mL U Marijuana (THC) Screen (Negative) ng/mL Ethyl Alcohol (0-10) mg/dL Influenza Type A A g (Negative) Influenza Type B A g (Negative) 12/15/19 12/15/19 12/15/19 Range/Units 20:55 20:55 21:38 WBC (4.0-10.0) 10^3/ uL RBC (4.1-5.3) 10^6/u L Hgb (11.5-15.3) g/dL Hct (37.0-47.0) % MCV (81-99) fL MCH (28.0-34.0) pg MCHC (30.0-36.0) g/dL RDW (12.1-15.1) % Plt Count (130-400) 10^3/c mm MPV (7.4-10.4) fL Neut % (Auto) % Lymph % (Auto) % [place] % (Auto) % Eos % (Auto) % Baso % (Auto) % Neut # (Auto) (1.8-7.7) 10^3/u L Lymph # (Auto) (0.8-4.8) 10^3/u L [place] # (Auto) (0.2-0.9) 10^3/u L Eos # (Auto) (0.0-0.8) 10^3/u L Baso # (Auto) (0.0-0.1) 10^3/u L Nucleated RBC % (a uto) % Nucleated RBCs # /100WBC Sodium (136-145) mmol/L Potassium (3.5-5.1) mmol/L Chloride (98-107) mmol/L Carbon Dioxide (22-29) mmol/L Anion Gap (5-19) BUN (6-20) mg/dL Creatinine (0.5-0.9) mg/dL GFR Calculation (90-130) mL/min Glucose (65-115) mg/dL Calculated Osmolal ity (285-295) mOsm/k g Lactic Acid (0.5-2.2) mmol/L Calcium (8.5-10.5) mg/dL Magnesium (1.7-2.3) mg/dL Total Bilirubin (0.15-1.2) mg/dL AST (0-32) U/L ALT (0-33) U/L Alkaline Phosphata se (35-105) IU/L Total Protein (6.6-8.7) g/dL Albumin (3.5-5.2) g/dL Globulin (1.3-4.6) g/dL TSH (0.27-4.20) uIU/ mL Free T4 (0.82-1.77) ng/d L HCG, Qual Negative (Negative) Urine Color Yellow (Yellow) Urine Appearance Cloudy (CLEAR) Urine pH 7 (5-7) Ur Specific Gravit y 1.020 (1.005-1.030) Urine Protein Neg (Negative) Urine Glucose (UA) Norm (Normal) Urine Ketones Negative (Negative) Urine Blood Neg (Negative) Urine Nitrate Negative (Negative) Urine Bilirubin Neg (NEGATIVE) Urine Urobilinogen Norm (Negative) mg/dL Ur Leukocyte Evelia ase Negative (Negative) Urine RBC Rare (0-2) /hpf Urine WBC 0-4 H (0-5) /hpf Ur Squamous Epith Cells 0-4 H (0-5) Amorphous Sediment 1+ Urine Bacteria 1+ H (NONE) Salicylates < 0.3 L (3-10) mg/dL Urine Opiates Scre en (Negative) ng/mL Acetaminophen < 5.0 L (10-30) ug/mL Ur Barbiturates Sc reen (Negative) ng/mL Ur Phencyclidine S crn (Negative) ng/mL Ur Amphetamines Sc reen (Negative) ng/mL U Benzodiazepines Scrn (Negative) ng/mL Urine Cocaine Scre en (Negative) ng/mL U Marijuana (THC) Screen (Negative) ng/mL Ethyl Alcohol < 10 (0-10) mg/dL Influenza Type A A g (Negative) Influenza Type B A g (Negative) 12/15/19 12/15/19 Range/Units 21:38 21:40 WBC (4.0-10.0) 10^3/ uL RBC (4.1-5.3) 10^6/u L Hgb (11.5-15.3) g/dL Hct (37.0-47.0) % MCV (81-99) fL MCH (28.0-34.0) pg MCHC (30.0-36.0) g/dL RDW (12.1-15.1) % Plt Count (130-400) 10^3/c mm MPV (7.4-10.4) fL Neut % (Auto) % Lymph % (Auto) % [place] % (Auto) % Eos % (Auto) % Baso % (Auto) % Neut # (Auto) (1.8-7.7) 10^3/u L Lymph # (Auto) (0.8-4.8) 10^3/u L [place] # (Auto) (0.2-0.9) 10^3/u L Eos # (Auto) (0.0-0.8) 10^3/u L Baso # (Auto) (0.0-0.1) 10^3/u L Nucleated RBC % (a uto) % Nucleated RBCs # /100WBC Sodium (136-145) mmol/L Potassium (3.5-5.1) mmol/L Chloride (98-107) mmol/L Carbon Dioxide (22-29) mmol/L Anion Gap (5-19) BUN (6-20) mg/dL Creatinine (0.5-0.9) mg/dL GFR Calculation (90-130) mL/min Glucose (65-115) mg/dL Calculated Osmolal ity (285-295) mOsm/k g Lactic Acid (0.5-2.2) mmol/L Calcium (8.5-10.5) mg/dL Magnesium (1.7-2.3) mg/dL Total Bilirubin (0.15-1.2) mg/dL AST (0-32) U/L ALT (0-33) U/L Alkaline Phosphata se (35-105) IU/L Total Protein (6.6-8.7) g/dL Albumin (3.5-5.2) g/dL Globulin (1.3-4.6) g/dL TSH (0.27-4.20) uIU/ mL Free T4 (0.82-1.77) ng/d L HCG, Qual (Negative) Urine Color (Yellow) Urine Appearance (CLEAR) Urine pH (5-7) Ur Specific Gravit y (1.005-1.030) Urine Protein (Negative) Urine Glucose (UA) (Normal) Urine Ketones (Negative) Urine Blood (Negative) Urine Nitrate (Negative) Urine Bilirubin (NEGATIVE) Urine Urobilinogen (Negative) mg/dL Ur Leukocyte Evelia ase (Negative) Urine RBC (0-2) /hpf Urine WBC (0-5) /hpf Ur Squamous Epith Cells (0-5) Amorphous Sediment Urine Bacteria (NONE) Salicylates (3-10) mg/dL Urine Opiates Scre en Negative (Negative) ng/mL Acetaminophen (10-30) ug/mL Ur Barbiturates Sc reen Negative (Negative) ng/mL Ur Phencyclidine S crn Negative (Negative) ng/mL Ur Amphetamines Sc reen Positive H (Negative) ng/mL U Benzodiazepines Scrn Negative (Negative) ng/mL Urine Cocaine Scre en Negative (Negative) ng/mL U Marijuana (THC) Screen Negative (Negative) ng/mL Ethyl Alcohol (0-10) mg/dL Influenza Type A A g Negative (Negative) Influenza Type B A g Negative (Negative) Discharge Plan Discharge Patient Disposition: Admitted As Inpatient Clinical Impression: Auditory hallucinations, Suicidal ideation, Visual hallucinations Condition: Stable Referrals: Charito Burroughs MD [Primary Care Provider] - Coding Level of Care Code ED Stone Engraver for Chg Fwd Exam Expanded Problem Focused
[2019-12-15 21:31] LABS: Alanine Aminotransferase 27 U/L (0-33); Albumin Level 4.8 g/dL (3.5-5.2); Alkaline Phosphatase 101 IU/L (35-105); Aspartate Amino Transferase 25 U/L (0-32); Blood Urea Nitrogen 12 mg/dL (6-20); Calcium 10.2 mg/dL (8.5-10.5); Carbon Dioxide 25 mmol/L (22-29); Chloride 102 mmol/L (98-107); Free T4 Free Thyroxine 1.72 ng/dL (0.82-1.77); Globulin 2.9 g/dL (1.3-4.6); Glomerular Filtration Rate 85.4 mL/min (90-130); Glucose 95 mg/dL (65-115); Magnesium 1.9 mg/dL (1.7-2.3); Osmolality Calculated 282 mOsm/kg (285-295); Sodium 138 mmol/L (136-145); Thyroid Stimulating Hormone 1.84 uIU/mL (0.27-4.20); Total Bilirubin 0.2 mg/dL (0.15-1.2); Total Protein 7.7 g/dL (6.6-8.7)
[2019-12-15 21:41] VITALS: BP 134/85; PULSE 87; RESP 14; O2SAT 98
[2019-12-15 22:21] LABS: Amorphous Sediment Urine 1+; Amphetamines Screen Urine Positive (Negative); Bacteria Urine 1+; Barbiturates Screen Urine Negative (Negative); Benzodiazepines Screen Urine Negative (Negative); Bilirubin Urine Neg (NEGATIVE); Blood Urine Neg (Negative); Cocaine Screen Urine Negative (Negative); Glucose Urine UA Norm (Normal); Ketones Urine Negative (Negative); Leukocyte Esterase Urine Negative (Negative); Nitrate Urine Negative (Negative); Opiate Screen Urine Negative (Negative); PCP Screen Urine Negative (Negative); Protein Urine Neg (Negative); RBC Urine RARE /hpf (0-2); Squamous Epithelial Cell Urine 0-4 (0-5); THC Screen Urine Negative (Negative); Urine Appearance Cloudy (CLEAR); Urine Color Yellow (Yellow); Urobilinogen Urine Norm (Negative); WBC Urine 0-4 /hpf (0-5); pH Urine 7 (5-7)
[2019-12-15 22:26] LABS: Influenza A by IFA Negative (Negative); Influenza B by IFA Negative (Negative)
[2019-12-16 00:08] LABS: Acetaminophen < 5.0 ug/mL (10-30); Alcohol Level < 10 mg/dL (0-10); Salicylate < 0.3 mg/dL (3-10)
[2019-12-16 00:52] VITALS: PULSE 84; RESP 16; O2SAT 99
[2019-12-16 00:56] VITALS: BP 122/85; PULSE 85; RESP 16; O2SAT 99
[2019-12-16 01:06] VITALS: BP 137/99; PULSE 87; RESP 20; TEMP 37; O2SAT 99
[2019-12-16 06:00] VITALS: BP 113/76; PULSE 79; RESP 15; TEMP 36.7; O2SAT 97
[2019-12-16 12:06] LABS: Hepatitis C Virus Antibody Non-Reactive (Nonreactive)
[2019-12-16 12:55] LABS: Rapid Plasma Reagin Syphilis Reactive (Nonreactive)
[2019-12-16 13:47] VITALS: BP 114/78; PULSE 68; RESP 18; TEMP 37.1; O2SAT 99
[2019-12-16] MEDS: nicotine 2 mg Gum BUCCAL (19:27)
[2019-12-16 20:15] VITALS: BP 98/64; PULSE 77; RESP 16; TEMP 37.1; O2SAT 97
--- NOTE | 2019-12-16 20:56 | P.HP_ITS ---
Providers/Chief Complaint Admitting Physician: Douglas Lindsay MD Primary Care Provider: Charito Burroughs MD Chief Complaint: fever, hallucinations HPI NPU History of Present Illness Jen Maria is a 29 year old female with a history of mental disorder said to be bipolar disorder. She got off her medications and she became very aggressive and loud and impulsive. She becomes hypersexual and, as a result, has required a panoply of STDs. The question of reporting naturally arises since contact tracing in the last 3 days what with MATTHEW. She says she has an array of meds that are helpful to her, particularly sertraline, which may actually ignite her judah, but nothing to stabilize her mood. She is also used methamphetamine for protracted periods of time but says she never injected. Review of Systems Narrative: Const: Denies: fever(s), chills, body aches, fatigue or malaise Card: Denies: chest pain, palpitations, lightheadedness or syncope Resp: Denies: dyspnea GI: Denies: abdominal pain, nausea, vomiting or diarrhea Musc: Denies: neck pain or back pain Skin/Breast: Denies: rash Neuro: Denies: headache(s) Meds NPU Home Medications Medication Instructions Recorded Confirmed Last Taken Type hydroxyzine pamoate 50 mg PO Q6H PRN 30 Days #120 cap 09/30/19 10/31/19 Unknown Rx sertraline 50 mg PO DAILY 30 Days #30 tab 09/30/19 10/31/19 Unknown Rx hydroxyzine HCl 25 mg tablet 25 mg PO QID PRN 10/20/19 10/31/19 Unknown History mirtazapine 15 mg tablet 15 mg PO DAILY 10/20/19 10/31/19 Unknown History nicotine 14 mg/24 hr daily 1 patch TRANSDERMA DAILY 10/31/19 10/31/19 Unknown History transdermal patch Allergies Allergy/AdvReac Type Severity Reaction Status Date / Time No Known Allergies Allergy Verified 10/31/19 15:11 PFS NPU PFSH: Medical History (Updated 12/15/19 @ 23:53 by ALYSSA Arellano) Depression Methamphetamine use Surgical History (Updated 10/31/19 @ 15:27 by Lisa Freedman APN, ISHAN) H/O pelvic surgery (~2018) fractured pelvis, skull, neck--- only pelvis needed repair Family History (Updated 10/31/19 @ 15:28 by Lisa Freedman APN, ISHAN) Mother Cancer B- cell lymphoma Father Cancer Lung CA Hypertension Denies family history of Diabetes Clotting disorder Hyperlipidemia Chronic kidney disease (CKD) Bleeding disorder Stroke Social History Smoking and tobacco status: current some day smoker Quit status (tobacco): has quit using tobacco Year quit tobacco: 09/2019 Alcohol intake: never Current gender identity: Female Other Psychiatric History: Other Psychiatric History: Patient says she has had numerous hospitalizations for her mood episodes. Mental Status Exam MSE Comments: This is a well-nourished, well-developed, female, with adequate dress and grooming, but poor eye contact. No abnormal movements. Cooperative with exam in no acute distress. Speech was of normal rate and volume. Mood is dysphoric and seems to want to get back on an even keel; affect congruent. Thought process, organized. Thought content: patient did endorse some suicidal thoughts, there were no delusions reported or noted, patient now acknowledges multiple voices of her friends which occur as auditory hallucinations . Attention, concentration, and memory appear intact but were not formally tested. She is alert and oriented times three. Insight and judgment appear fair. Impulse control is impaired. Vitals/I&O/Wt Last Vital Signs Temp 98.8 F 12/16/19 20:15 Pulse 77 12/16/19 20:15 Resp 16 12/16/19 20:15 BP 98/64 12/16/19 20:15 Pulse Ox 97 12/16/19 20:15 Weight last 48 hrs Weight 145 lb Physical Exam Narrative: EXAM NARRATIVE: Const: COMMON NORMALS: no acute distress, patient oriented x3, alert and well nourished GENERAL APPEARANCE: cooperative and well kempt Resp: COMMON NORMALS: normal respiratory effort and clear to auscultation bilaterally AUSCULTATION: clear to auscultation bilaterally Cardio: COMMON NORMALS: regular rate and regular rhythm RATE: regular rate RHYTHM: regular rhythm Neuro: COMMON NORMALS: patient oriented x3 SENSORIUM/ORIENTATION: Yes alert Data NPU : 12/15/19 20:55 12/15/19 20:55 Micro: Microbiology 12/15/19 20:56 Blood Culture - Preliminary Blood SPECIMEN COLLECTED 12/15/19 20:55 Blood Culture - Preliminary Blood SPECIMEN COLLECTED Microbiology 12/15/19 20:56 Blood Blood Culture - Preliminary SPECIMEN COLLECTED 12/15/19 20:55 Blood Blood Culture - Preliminary SPECIMEN COLLECTED A&P Assessment and plan (1) Auditory hallucinations: I do not think this is true schizophrenia. She has been on too much meth amphetamine for too long to exclude that as related. Status: Acute (2) Suicidal ideation: The staff will monitor her safety Status: Acute Involuntary Hold Information 96 Hour Hold: 96 Hour Involuntary Admission: No Attestations NPU Medical Necessity Statement*: I anticipate 7-10 midnights Time Spent in Patient Care: Greater than 35 minutes (>than 50% of time spent in counselling and/or direct pt care on unit) . Coding Level of Care Code Acute Scroll Shear Operator for Yoel Frausto Diagnoses Auditory hallucinations R44.0 Suicidal ideation R45.851
[2019-12-16] MEDS: trazodone 50 mg Tablet PO (22:02)
--- NOTE | 2019-12-16 22:02 | PC.NURSE ---
PRN TRAZODONE PT REQUESTING SLEEP AID. TRAZODONE 50MG PO ADMINISTERED. WILL MONITOR FOR MEDICATION EFFECTIVENESS
[2019-12-16] MEDS: hyDROXYzine 25 mg Capsule 50 MG PO (22:40)
--- NOTE | 2019-12-17 00:21 | PC.NURSE ---
PRN VISTARIL ADMINISTERED VISTARIL 50 MG PO FOR PT C/O OF ANXIETY. WILL MONITOR FOR MEDICATION EFFECTIVENESS.
[2019-12-17 06:00] VITALS: BP 100/65; PULSE 70; RESP 20; TEMP 36.7; O2SAT 99
[2019-12-17] MEDS: sertraline 50 mg Tablet PO (08:29)
[2019-12-17] MEDS: mirtazapine 15 mg Tablet PO (08:29)
--- NOTE | 2019-12-17 12:26 | PC.RESP ---
Smoking Cessation information and a schedule of classes sent to patient.
[2019-12-17 14:00] VITALS: BP 111/72; PULSE 72; RESP 18; TEMP 36.7; O2SAT 97
--- NOTE | 2019-12-17 18:21 | PM.NPN ---
Subjective NPU Subjective: Interval history: The patient's STD testing came back positive for syphilis and trichomonas. Fortunately there is negative for HIV and gonorrhea as well as chlamydia. After consultation with the emergency room physician we elected to utilize 2.4 million penicillin G IM. Also I ordered Flagyl 500 mg 4 times daily for 7 days for the trichomonas. I discussed the risks of unprotected sex with the patient and I consult with the staff as well as the ED regarding reporting obligations that the hospital has. Medications: Reviewed: Yes Medication Review Details: Current Medications Acetaminophen (Tylenol) 650 mg PO Q4H PRN PRN Reason: MILD PAIN Benztropine Mesylate (Cogentin) 1 mg PO BID PRN PRN Reason: Mild Extrapyramidal symptoms Camphor/Menthol/Phenol (Blistex) 1 applic TOPICAL Q1H PRN PRN Reason: DRYNESS Diphenhydramine HCl (Benadryl) 50 mg IM ONCE PRN PRN Reason: Severe Extrapyramidal Symptoms Diphenhydramine HCl (Benadryl) 50 mg IM Q4H PRN PRN Reason: Severe Aggression Haloperidol (Haldol) 5 mg PO Q4H PRN PRN Reason: AGITATION Haloperidol Lactate (Haldol Inj) 5 mg IM Q4H PRN PRN Reason: Severe Aggression Hydroxyzine Pamoate (Vistaril) 50 mg PO Q6H PRN PRN Reason: Anxiety Loperamide HCl (Imodium Capsule) 2 mg PO Q6H PRN PRN Reason: DIARRHEA Lorazepam (Ativan) 2 mg IM Q4H PRN PRN Reason: Severe Aggression Metronidazole (Flagyl Tab) 500 mg PO QID [facility] Stop: 12/24/19 21:00 Mirtazapine (Remeron) 15 mg PO DAILY KATHY Last Admin: 12/17/19 08:29 Dose: 15 mg Documented by: Nicotine (Nicoderm 21 Mg Patch) 1 patch TRANSDERMA DAILY PRN PRN Reason: NICOTINE WITHDRAWAL Nicotine Polacrilex (Nicorette) 2 mg BUCCAL Q2H PRN PRN Reason: NICOTINE WITHDRAWAL Last Admin: 12/16/19 19:27 Dose: 2 mg Documented by: Non-Formulary Medication (Povidone-Iodine [Betadine Swabsticks]) 1 applic TOPICAL ONCE KATHY Olanzapine (Zyprexa Zydis) 5 mg PO Q4H PRN PRN Reason: Agitation/Psychosis Ondansetron HCl (Zofran) 4 mg PO Q6H PRN PRN Reason: NAUSEA AND VOMITING Penicillin G Benzathine (Bicillin L-A) 2,400,000 unit IM ONCE ONE Stop: 12/17/19 18:31 Sertraline HCl (Zoloft) 50 mg PO DAILY KATHY Last Admin: 12/17/19 08:29 Dose: 50 mg Documented by: Trazodone HCl (Desyrel) 50 mg PO BEDTIME PRN PRN Reason: SLEEP Last Admin: 12/16/19 22:02 Dose: 50 mg Documented by: Mental Status Exam MSE Comments: This is a well-nourished, well-developed, female, with adequate dress and grooming, but poor eye contact. No abnormal movements. Cooperative with exam in no acute distress. Speech was of normal rate and volume. Mood is dysphoric and seems to want to get back on an even keel; affect congruent. Thought process, organized. Thought content: patient did endorse some suicidal thoughts, but there were no delusions reported or noted, patient now acknowledges multiple voices of her friends, auditory hallucinations. Attention, concentration, and memory appear intact but were not formally tested. She is alert and oriented times three. Insight and judgment appear fair. Impulse control is impaired. Vitals/I&O/Wt Last Vital Signs Temp 98.1 F 12/17/19 14:00 Pulse 72 12/17/19 14:00 Resp 18 12/17/19 14:00 BP 111/72 12/17/19 14:00 Pulse Ox 97 12/17/19 14:00 Weight last 48 hrs Weight 145 lb Physical Exam Narrative: EXAM NARRATIVE: Const: COMMON NORMALS: no acute distress, patient oriented x3, alert and well nourished GENERAL APPEARANCE: cooperative and well kempt Resp: COMMON NORMALS: normal respiratory effort and clear to auscultation bilaterally AUSCULTATION: clear to auscultation bilaterally Cardio: COMMON NORMALS: regular rate and regular rhythm RATE: regular rate RHYTHM: regular rhythm Neuro: COMMON NORMALS: patient oriented x3 SENSORIUM/ORIENTATION: Yes alert Data NPU : 12/15/19 20:55 12/15/19 20:55 Micro: Microbiology 12/15/19 21:38 Chlamydia trachomatis (NATALIE) - Final Urine Random Neisseria gonorrhoeae (NATALIE) - Final 12/15/19 20:56 Blood Culture - Preliminary Blood NEGATIVE TO DATE 12/15/19 20:55 Blood Culture - Preliminary Blood NEGATIVE TO DATE Microbiology 12/15/19 21:38 Urine Random Chlamydia trachomatis (NATALIE) - Final 12/15/19 21:38 Urine Random Neisseria gonorrhoeae (NATALIE) - Final 12/15/19 20:56 Blood Blood Culture - Preliminary NEGATIVE TO DATE 12/15/19 20:55 Blood Blood Culture - Preliminary NEGATIVE TO DATE A&P Assessment and plan (1) Auditory hallucinations: Status: Acute (2) Suicidal ideation: Status: Acute (3) Bipolar 1 disorder, depressed, moderate: Status: Acute Involuntary Hold Information 96 Hour Hold: 96 Hour Involuntary Admission: No Attestations NPU Medical Necessity Statement*: I anticipate 6-9 midnights additional stay Time Spent in Patient Care: Greater than 35 minutes (>than 50% of time spent in counselling and/or direct pt care on unit). 70 minutes extensive consultation with colleagues, the hospital pharmacy, online research, careful patient education regarding risks of unprotected sex etc. Coding Level of Care Code Acute Parts Casting Machine Operator for Chg Fwd Diagnoses Auditory hallucinations R44.0 Suicidal ideation R45.851 Bipolar 1 disorder, depressed, moderate F31.32
[2019-12-17] MEDS: metroNIDAZOLE 500 MG Tablet PO ×2 (18:43→18:49)
[2019-12-17] MEDS: penicillin g (L-A) 1,200,000 unit/2 mL Syr 2400000 UNIT IM (18:43)
[2019-12-17] MEDS: nicotine 2 mg Gum BUCCAL (19:38)
[2019-12-17] MEDS: hyDROXYzine 25 mg Capsule 50 MG PO (20:30)
[2019-12-17] MEDS: trazodone 50 mg Tablet PO (20:31)
[2019-12-17 22:00] VITALS: BP 116/80; PULSE 76; RESP 17; TEMP 37; O2SAT 100
[2019-12-17] MEDS: OLANZapine 5 mg ODT PO (23:42)
[2019-12-18 06:00] VITALS: BP 107/72; PULSE 61; RESP 17; TEMP 36.8; O2SAT 97
[2019-12-18] MEDS: sertraline 50 mg Tablet PO (08:23)
[2019-12-18] MEDS: mirtazapine 15 mg Tablet PO (08:23)
[2019-12-18] MEDS: metroNIDAZOLE 500 MG Tablet PO ×2 (08:23→17:04)
--- NOTE | 2019-12-18 13:59 | PM.NPN ---
Subjective NPU Subjective: Interval history: Jen presents today reporting that she feels horrible. She has had a pretty ugly run back into her addiction and reports that she has not slept for a while. She was resistant to discussing over the next step going forward but just reports that if she goes back in the direction that she just came from that she does not know that she could live through it. We discussed her STDs that she is being treated for. She was difficult to keep alert. Mental Status Exam MSE Comments: This is a well-nourished, well-developed, white female, looking quite frazzled with limited dress, grooming, and eye contact. No abnormal movements except for significant psychomotor retardation. Semi-cooperative with exam in mild distress. Speech was decreased rate and volume. Mood described as shitty; affect congruent. Thought process, organized. Thought content: patient denied any suicidal or homicidal ideation, there were no delusions reported or noted, patient denied any auditory or visual hallucinations. Attention and concentration were limited, and memory appeared intact but were not formally tested. She is alert and oriented times three. Insight and judgment are impaired.impulse control is impaired. Vitals/I&O/Wt Last Vital Signs Temp 98.2 F 12/18/19 20:36 Pulse 92 12/18/19 20:36 Resp 15 12/18/19 20:36 BP 122/84 12/18/19 20:36 Pulse Ox 98 12/18/19 20:36 Data NPU : 12/15/19 20:55 12/15/19 20:55 A&P Assessment and plan (1) Bipolar 1 disorder, depressed, moderate: Status: Acute (2) Auditory hallucinations: Status: Acute (3) Suicidal ideation: Status: Acute (4) Visual hallucinations: Status: Acute (5) Depression: Status: Acute (6) Methamphetamine use: Status: Acute Additional A&P Information This is a 29 year old, white female, with history of depressive and anxiety disorder, unspecified, methamphetamine use disorder, severe, rule out methamphetamine induced mood and anxiety disorders, who presents with a recent relapse and suicidal thoughts hoping to get her recovery back on track. continue current medication. Encourage individual and milieu therapies. Continue q 15-minute checks for safety. We will work with social work to find a reasonable plan for discharge to a sober living facility at the highest level of care to which she is willing to commit. Involuntary Hold Information 96 Hour Hold: 96 Hour Involuntary Admission: No Attestations NPU Medical Necessity Statement*: Inpatient hospitalization is medically necessary and the clinically appropriate intervention at this time we will assist her in getting back on track by finding a sober living treatment facility. Likely length of stay 2 to 4 days. We will make sure her medications have been restarted and titrated to appropriate levels. Coding Level of Care Code Acute Architecture Department Chair for Yoel Fwd Diagnoses Bipolar 1 disorder, depressed, moderate F31.32 Auditory hallucinations R44.0 Suicidal ideation R45.851 Visual hallucinations R44.1 Depression F32.9 Methamphetamine use F15.10
[2019-12-18 14:00] VITALS: BP 108/66; PULSE 64; RESP 18; TEMP 36.9; O2SAT 98
[2019-12-18] MEDS: nicotine 2 mg Gum BUCCAL ×2 (17:51→23:01)
[2019-12-18 20:36] VITALS: BP 122/84; PULSE 92; RESP 15; TEMP 36.8; O2SAT 98
[2019-12-18] MEDS: OLANZapine 5 mg ODT PO (22:01)
[2019-12-18] MEDS: hyDROXYzine 25 mg Capsule 50 MG PO (22:01)
[2019-12-18] MEDS: haloperidol 5 mg Tablet PO (22:59)
[2019-12-19 06:00] VITALS: BP 127/82; PULSE 66; RESP 14; TEMP 36.8; O2SAT 97
[2019-12-19] MEDS: metroNIDAZOLE 500 MG Tablet PO ×2 (08:40→17:46)
[2019-12-19] MEDS: sertraline 50 mg Tablet PO (08:40)
[2019-12-19] MEDS: mirtazapine 15 mg Tablet PO (08:40)
--- NOTE | 2019-12-19 12:02 | P.PN_ITS ---
Subjective NPU Subjective: Interval history: Jen presents today starting to look a little more alert and like herself. She worked with a social work team today and looks like a facility will give her the next available bed which they are reporting will be no later than Sunday at their estimation but certainly could be earlier. We advised them that we would support transitioning her over to their facility for inpatient rehab. She is beginning to share a story about how she fell such a low point but she endorsed determination to brush herself off again and get back on her recovery. Mental Status Exam MSE Comments: This is a well-nourished, well-developed, white female, looking less frazzled with improved dress, grooming, and eye contact. No abnormal movements except for psychomotor retardation. More cooperative with exam in mild distress. Speech was decreased rate and volume. Mood described as a little better; affect congruent. Thought process, organized. Thought content: patient d enied any suicidal or homicidal ideation, there were no delusions reported or noted, patient denied any auditory or visual hallucinations. Attention and concentration were intact, and memory appeared intact but were not formally tested. She is alert and oriented times three. Insight and judgment are improving.impulse control is impaired. Vitals/I&O/Wt Last Vital Signs Temp 98.2 F 12/19/19 14:00 Pulse 60 12/19/19 14:00 Resp 20 H 12/19/19 14:00 BP 114/67 12/19/19 14:00 Pulse Ox 97 12/19/19 14:00 Data NPU : 12/15/19 20:55 12/15/19 20:55 A&P Additional A&P Information (1) Bipolar 1 disorder, depressed, moderate: (2) Auditory hallucinations: (3) Suicidal ideation: (4) Visual hallucinations: (5) Depression: (6) Methamphetamine use: This is a 29 year old, white female, with history of depressive and anxiety disorder, unspecified, methamphetamine use disorder, severe, rule out methamphetamine induced mood and anxiety disorders, who presents with a recent relapse and suicidal thoughts hoping to get her recovery back on track. continue current medication. Encourage individual and milieu therapies. Continue q 15-minute checks for safety. The treatment team located rehab that is willing to accept her. We will work with her to facilitate her getting there and maintaining her sobriety till that point Involuntary Hold Information 96 Hour Hold: 96 Hour Involuntary Admission: No Attestations NPU Medical Necessity Statement*: Inpatient hospitalization is medically necessary and the clinically appropriate intervention at this time. We will assist her in getting back on track by finding a sober living treatment facility. Likely length of stay 2 to 4 days. We will make sure her medications have been restarted and titrated to appropriate levels. Coding Level of Care Code Acute Precision Mechanical Instrument Maker for Yoel Frausto
[2019-12-19 14:00] VITALS: BP 114/67; PULSE 60; RESP 20; TEMP 36.8; O2SAT 97
[2019-12-19] MEDS: nicotine 2 mg Gum BUCCAL (17:49)
[2019-12-19 22:00] VITALS: BP 128/77; PULSE 84; RESP 18; TEMP 36.7; O2SAT 99
[2019-12-20 06:00] VITALS: BP 95/59; PULSE 59; RESP 16; TEMP 36.9; O2SAT 97
[2019-12-20] MEDS: metroNIDAZOLE 500 MG Tablet PO ×2 (09:18→16:58)
[2019-12-20] MEDS: sertraline 50 mg Tablet PO (09:18)
[2019-12-20] MEDS: mirtazapine 15 mg Tablet PO (09:18)
--- NOTE | 2019-12-20 12:29 | P.PN_ITS ---
Subjective NPU Subjective: Interval history: Jen is starting to get back towards herself as far as her affect and presentation. She has been out of bed more today than she has in the previous two days combined, interactive and less isolative. She is beginning to have open discussion about how she is going to get or gain where she was. She talked briefly about some of the events that occurred that were mitigating circumstances for the relapse and her situation. She is starting to display more optimism about where we go from here which is normally her presentation. She reports that she is eating fine and sleeping better. Mental Status Exam MSE Comments: This is a well-nourished, well-developed, white female, looking less frazzled with improved dress, grooming, and eye contact. No abnormal movements except for psychomotor retardation. More cooperative with exam in no acute distress. Speech was decreased rate and volume. Mood described as alright; affect congruent. Thought process, organized. Thought content: patient denied any suicidal or homicidal ideation, there were no delusions reported or noted, patient denied any auditory or visual hallucinations. Attention and concentration were intact, and memory appeared intact but were not formally tested. She is alert and oriented times three. Insight and judgment are improving.impulse control is impaired. Vitals/I&O/Wt Last Vital Signs Temp 98.5 F 12/20/19 06:00 Pulse 59 L 12/20/19 06:00 Resp 16 12/20/19 06:00 BP 95/59 12/20/19 06:00 Pulse Ox 97 12/20/19 06:00 Weight last 48 hrs Weight 76.43 kg Data NPU : 12/15/19 20:55 12/15/19 20:55 A&P Additional A&P Information (1) Bipolar 1 disorder, depressed, moderate: (2) Auditory hallucinations: (3) Suicidal ideation: (4) Visual hallucinations: (5) Depression: (6) Methamphetamine use: This is a 29 year old, white female, with history of depressive and anxiety disorder, unspecified, methamphetamine use disorder, severe, rule out methamphetamine induced mood and anxiety disorders, who presents with a recent relapse and suicidal thoughts hoping to get her recovery back on track. continue current medication. Encourage individual and milieu therapies. Continue q 15-minute checks for safety. The treatment team located rehab that is willing to accept her. We will work with her to facilitate her getting there and maintaining her sobriety till that point Involuntary Hold Information 96 Hour Hold: 96 Hour Involuntary Admission: No Attestations NPU Medical Necessity Statement*: Inpatient hospitalization is medically necessary and the clinically appropriate intervention at this time. We will assist her in getting back on track by finding a sober living treatment facility. Likely length of stay 2 to 4 days. We will make sure her medications have been restarted and titrated to appropriate levels. Coding Level of Care Code Acute Environmental Engineering Professor for Yoel Frausto
[2019-12-20 14:00] VITALS: BP 131/81; PULSE 76; RESP 18; TEMP 36.7
[2019-12-20] MEDS: nicotine 2 mg Gum BUCCAL ×2 (18:18→22:11)
[2019-12-20 22:00] VITALS: BP 135/93; PULSE 97; RESP 18; TEMP 36.8; O2SAT 96
[2019-12-20] MEDS: OLANZapine 5 mg ODT PO (22:11)
[2019-12-20] MEDS: hyDROXYzine 25 mg Capsule 50 MG PO (22:11)
[2019-12-21] MEDS: nicotine 2 mg Gum BUCCAL (00:55)
[2019-12-21] MEDS: haloperidol 5 mg Tablet PO (00:59)
[2019-12-21 06:00] VITALS: BP 109/69; PULSE 81; RESP 15; TEMP 36.7; O2SAT 97
[2019-12-21] MEDS: mirtazapine 15 mg Tablet PO (08:45)
[2019-12-21] MEDS: metroNIDAZOLE 500 MG Tablet PO ×2 (08:45→17:27)
[2019-12-21] MEDS: sertraline 50 mg Tablet PO (08:45)
--- NOTE | 2019-12-21 11:34 | P.PN_ITS ---
Subjective NPU Subjective: Interval history: As presented today reporting that she is starting to feel more like herself. She reports that she is hopeful that she can get into the rehabilitation certainly by Sunday but is focused on getting back to where she was before this last slip occurred. She reports that she doing fine on the medication and that she is eating and sleeping better. Mental Status Exam MSE Comments: This is a well-nourished, well-developed, white female, looking less frazzled with improved dress, grooming, and eye contact. No abnormal movements except for psychomotor retardation. More cooperative with exam in no acute distress. Speech was more normal rate and volume. Mood described as getting better; affect congruent. Thought process, organized. Thought content: patient denied any suicidal or homicidal ideation, there were no delusions reported or noted, patient denied any auditory or visual hallucinations. Attention and concentration were intact, and memory appeared intact but were not formally tested. She is alert and oriented times three. Insight and judgment are improving.impulse control is improving. Vitals/I&O/Wt Last Vital Signs Temp 98.6 F 12/21/19 20:17 Pulse 78 12/21/19 20:17 Resp 15 12/21/19 20:17 BP 105/72 12/21/19 20:17 Pulse Ox 96 12/21/19 20:17 Weight last 48 hrs Weight 76.43 kg Data NPU : 12/15/19 20:55 12/15/19 20:55 A&P Additional A&P Information (1) Bipolar 1 disorder, depressed, moderate: (2) Auditory hallucinations: (3) Suicidal ideation: (4) Visual hallucinations: (5) Depression: (6) Methamphetamine use: This is a 29 year old, white female, with history of depressive and anxiety disorder, unspecified, methamphetamine use disorder, severe, rule out methamphetamine induced mood and anxiety disorders, who presents with a recent relapse and suicidal thoughts hoping to get her recovery back on track. continue current medication. Encourage individual and milieu therapies. Continue q 15-minute checks for safety. The treatment team located rehab that is willing to accept her. We will work with her to facilitate her getting there and maintaining her sobriety till that point Involuntary Hold Information 96 Hour Hold: 96 Hour Involuntary Admission: No Attestations NPU 2 Medical Necessity Statement*: Inpatient hospitalization is medically necessary and the clinically appropriate intervention at this time. We will assist her in getting back on track by finding a sober living treatment facility. Likely length of stay 1-3 days. We will make sure her medications have been restarted and titrated to appropriate levels. Coding Level of Care Code Acute Ship Propeller Finisher for Yoel Frausto
[2019-12-21 13:44] VITALS: BP 128/89; PULSE 98; RESP 18; TEMP 36.8; O2SAT 99
[2019-12-21 20:17] VITALS: BP 105/72; PULSE 78; RESP 15; TEMP 37; O2SAT 96
[2019-12-21] MEDS: hyDROXYzine 25 mg Capsule 50 MG PO (20:37)
--- NOTE | 2019-12-21 21:49 | PC.NURSE ---
PRN VISTARIL ADMINISTERED VISTARIL 50 MG PO FOR PT C/O ANXIETY. WILL MONITOR FOR MEDICATION EFFECTIVENESS.
[2019-12-21] MEDS: acetaminophen 325 mg Tablet 650 MG PO (22:28)
[2019-12-22 06:00] VITALS: BP 114/74; PULSE 58; RESP 16; TEMP 36.8; O2SAT 97
[2019-12-22] MEDS: sertraline 50 mg Tablet PO (08:55)
[2019-12-22] MEDS: mirtazapine 15 mg Tablet PO (08:55)
[2019-12-22] MEDS: metroNIDAZOLE 500 MG Tablet PO (08:55)
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
[2019-12-22 14:32] VITALS: BP 114/74; PULSE 58; RESP 16; TEMP 36.8; O2SAT 97
== END 2019-12-22 15:07 | disposition home or self-care (01) | DRG 885 ==
LOC: ER 23:53 → NP 12-16 14:27
PROVIDERS: Emergency Medicine; Physician Assistant; Admitting Provider Psychiatry & Neurology Psychiatry; PCP Family Medicine; Visit Provider Psychiatry & Neurology Psychiatry
DX: F31.9 Bipolar disorder, unspecified (principal); R44.0 Auditory hallucinations; R45.851 Suicidal ideations; F15.90 Other stimulant use, unspecified, uncomplicated; F17.210 Nicotine dependence, cigarettes, uncomplicated
CPT/HCPCS: 12345; 36415; 71045; 80053; 80306; 80307; 81001; 83605; 83735; 84439; 84443; 84703; 85025; 86592; 86803; 87040; 87491; 87591; 87804; 96372; 99284; 99285; J0561

== ENCOUNTER 2020-06-09 07:57 | Inpatient (IN) | payer MEDICAID, SELFPAY ==
[2020-06-09 08:09] VITALS: BP 159/121; PULSE 101; RESP 16; TEMP 36.8; O2SAT 99; BMI 25.8
--- NOTE | 2020-06-09 08:18 | W.ED.PSYCH ---
HPI - Psych General: Chief Complaint: Psychiatric Symptoms Stated Complaint: hallucinations, chills, meth abuse Time Seen by Provider: 06/09/20 07:59 Source: patient Mode of arrival: ambulatory Limitations: no limitations History of Present Illness: HPI Narrative: Patient is a 29-year-old female presents to ED today with a complaint of auditory and visual hallucinations. Patient tells me she is hearing voices of individuals that she knows and states they often try to have conversations with her. She tells me she feels like my eyes are not working stating that she sees people's faces and they often change. Auditory hallucinations are not commanding her to harm herself. She admittedly is not suicidal or homicidal. She does admit to recent methamphetamine use. Patient is currently homeless stating she left her residence approximately a week ago after she was having problems with her landlord. complaint: other (hallucinations ) Onset (ago): week(s) History of same: Yes Relieving factors: none Exacerbating factors: none Context: recent drug abuse Associated psychiatric symptoms: auditory hallucinations and visual hallucinations Associated symptoms: Reports auditory hallucinations, visual hallucinations and depression; Deny homicidal ideation or suicidal ideation Treatments prior to arrival: none Review of Systems Const: Denies: fever(s) or chills Card: Denies: chest pain, palpitations, lightheadedness or syncope Resp: Denies: dyspnea GI: Denies: abdominal pain, nausea, vomiting or diarrhea : Denies: flank pain, difficulty voiding, dysuria, urinary frequency or urinary urgency Skin/Breast: Denies: rash Neuro: Denies: headache(s) Psych: Reports: anxiety, depression, hopelessness, visual hallucinations and auditory hallucinations; Denies: suicidal ideation or homicidal ideation [facility] ED PFSH: Medical History (Updated 06/09/20 @ 09:23 by ALYSSA Arellano) Depression Methamphetamine use Surgical History (Updated 10/31/19 @ 15:27 by Lisa Freedman APN, ISHAN) H/O pelvic surgery (~2018) fractured pelvis, skull, neck--- only pelvis needed repair Family History (Updated 10/31/19 @ 15:28 by Lisa Freedman APN, ISHAN) Mother Cancer B- cell lymphoma Father Cancer Lung CA Hypertension Denies family history of Diabetes Clotting disorder Hyperlipidemia Chronic kidney disease (CKD) Bleeding disorder Stroke Social History (Updated 06/09/20 @ 08:17 by Ceferino Dang RN) Smoking and tobacco status: current some day smoker cigarettes Packs smoked per day: 0.25 Quit status (tobacco): has quit using tobacco Year quit tobacco: 09/2019 Alcohol intake: current Alcohol intake frequency: holidays/special occasions only Substance/Drug Use: current Substance/Drug use frequency: daily Substance/Drug use type: Amphetamines and Methamphetamine Current gender identity: Female Female Reproductive History: Date of last menstrual period: 05/09/20 Physical Exam Const: COMMON NORMALS: no acute distress, average body habitus, patient oriented x3, no limitations, alert and well nourished GENERAL APPEARANCE: cooperative and appears older than stated age ORIENTATION/CONSCIOUSNESS: Yes awake, Yes oriented to person, Yes oriented to place and Yes oriented to time HENMT: COMMON NORMALS: normocephalic and atraumatic HEAD & SCALP: normocephalic and atraumatic Resp: COMMON NORMALS: normal respiratory effort and clear to auscultation bilaterally AUSCULTATION: clear to auscultation bilaterally Cardio: COMMON NORMALS: regular rate and regular rhythm RATE: regular rate RHYTHM: regular rhythm Neuro: TARAN COMA SCALE: document GCS findings Taran coma scale eye opening: Spontaneous [place] coma scale verbal response: Orientated [place] coma scale motor response: Obey commands [place] coma scale total score: 15 COMMON NORMALS: patient oriented x3, moves all extremities, no focal motor deficits and no sensory deficits noted SENSORIUM/ORIENTATION: Yes alert, Yes oriented to person, Yes oriented to place and Yes oriented to time Psych: COMMON NORMALS: mental status grossly normal, Normal thought process present, cooperative, speech normal, activity/motor behavior normal, denies homicidal ideation and denies suicidal ideation APPEARANCE: Yes grossly normal ATTITUDE: Yes calm ACTIVITY/MOTOR BEHAVIOR: No psychomotor agitation and Yes Avoids eye contact (attititude/behavior) SPEECH: Yes normal speech MOOD & AFFECT: Yes Flat affect present THOUGHT PROCESS: Normal thought process present THOUGHT CONTENT: Yes Normal thought content present ATTENTION/CONCENTRATION: Yes attention grossly intact and Yes concentration grossly intact MEMORY/COGNITION: Yes memory grossly intact and Yes cognition grossly intact INSIGHT: Good insight present (Psych) JUDGEMENT: Fair judgement present (Psych) Skin: NARRATIVE SKIN EXAM: small abrasion to L posterior ankle, small blister to L plantar foot MDM - Psych Lab Data: Labs: Lab Results 06/09/20 06/09/20 06/09/20 Range/Units 08:38 09:25 09:25 WBC 8.5 (4.0-10.0) 10^3/ uL RBC 5.24 (4.1-5.3) 10^6/u L Hgb 15.5 H (11.5-15.3) g/dL Hct 47.5 H (37.0-47.0) % MCV 90.6 (81-99) fL MCH 29.6 (28.0-34.0) pg MCHC 32.6 (30.0-36.0) g/dL RDW 13.0 (12.1-15.1) % Plt Count 275 (130-400) 10^3/c mm MPV 10.2 (7.4-10.4) fL Neut % (Auto) 60.2 % Lymph % (Auto) 29.9 % [place] % (Auto) 5.9 % Eos % (Auto) 3.0 % Baso % (Auto) 0.8 % Neut # (Auto) 5.08 (1.8-7.7) 10^3/u L Lymph # (Auto) 2.5 (0.8-4.8) 10^3/u L [place] # (Auto) 0.5 (0.2-0.9) 10^3/u L Eos # (Auto) 0.3 (0.0-0.8) 10^3/u L Baso # (Auto) 0.1 (0.0-0.1) 10^3/u L Nucleated RBC % (a uto) 0 % Nucleated RBCs # 0.0 /100WBC Sodium 140 (136-145) mmol/L Potassium 4.1 (3.5-5.1) mmol/L Chloride 104 (98-107) mmol/L Carbon Dioxide 26 (22-29) mmol/L Anion Gap 14.1 (5-19) BUN 10 (6-20) mg/dL Creatinine 0.7 (0.5-0.9) mg/dL GFR Calculation 99.6 (90-130) mL/min Glucose 91 (65-115) mg/dL Calculated Osmolal ity 289 (285-295) mOsm/k g Calcium 9.7 (8.5-10.5) mg/dL Total Bilirubin 0.5 (0.15-1.2) mg/dL AST 18 (0-32) U/L ALT 21 (0-33) U/L Alkaline Phosphata se 109 H (35-105) IU/L Total Protein 7.8 (6.6-8.7) g/dL Albumin 4.6 (3.5-5.2) g/dL Globulin 3.2 (1.3-4.6) g/dL HCG, Qual (Negative) Salicylates < 0.3 L (3-10) mg/dL Urine Opiates Scre en Negative (Negative) ng/mL Acetaminophen < 5.0 L (10-30) ug/mL Ur Barbiturates Sc reen Negative (Negative) ng/mL Ur Phencyclidine S crn Negative (Negative) ng/mL Ur Amphetamines Sc reen Positive H (Negative) ng/mL U Benzodiazepines Scrn Negative (Negative) ng/mL Urine Cocaine Scre en Negative (Negative) ng/mL U Marijuana (THC) Screen Positive H (Negative) ng/mL Ethyl Alcohol < 10 (0-10) mg/dL 06/09/20 Range/Units 09:25 WBC (4.0-10.0) 10^3/ uL RBC (4.1-5.3) 10^6/u L Hgb (11.5-15.3) g/dL Hct (37.0-47.0) % MCV (81-99) fL MCH (28.0-34.0) pg MCHC (30.0-36.0) g/dL RDW (12.1-15.1) % Plt Count (130-400) 10^3/c mm MPV (7.4-10.4) fL Neut % (Auto) % Lymph % (Auto) % [place] % (Auto) % Eos % (Auto) % Baso % (Auto) % Neut # (Auto) (1.8-7.7) 10^3/u L Lymph # (Auto) (0.8-4.8) 10^3/u L [place] # (Auto) (0.2-0.9) 10^3/u L Eos # (Auto) (0.0-0.8) 10^3/u L Baso # (Auto) (0.0-0.1) 10^3/u L Nucleated RBC % (a uto) % Nucleated RBCs # /100WBC Sodium (136-145) mmol/L Potassium (3.5-5.1) mmol/L Chloride (98-107) mmol/L Carbon Dioxide (22-29) mmol/L Anion Gap (5-19) BUN (6-20) mg/dL Creatinine (0.5-0.9) mg/dL GFR Calculation (90-130) mL/min Glucose (65-115) mg/dL Calculated Osmolal ity (285-295) mOsm/k g Calcium (8.5-10.5) mg/dL Total Bilirubin (0.15-1.2) mg/dL AST (0-32) U/L ALT (0-33) U/L Alkaline Phosphata se (35-105) IU/L Total Protein (6.6-8.7) g/dL Albumin (3.5-5.2) g/dL Globulin (1.3-4.6) g/dL HCG, Qual Negative (Negative) Salicylates (3-10) mg/dL Urine Opiates Scre en (Negative) ng/mL Acetaminophen (10-30) ug/mL Ur Barbiturates Sc reen (Negative) ng/mL Ur Phencyclidine S crn (Negative) ng/mL Ur Amphetamines Sc reen (Negative) ng/mL U Benzodiazepines Scrn (Negative) ng/mL Urine Cocaine Scre en (Negative) ng/mL U Marijuana (THC) Screen (Negative) ng/mL Ethyl Alcohol (0-10) mg/dL Discharge Plan Discharge Patient Disposition: Admitted As Inpatient Clinical Impression: Methamphetamine use, Auditory hallucinations, Visual hallucinations Condition: Stable Coding Level of Care Code ED Diesel Technology Instructor for Yoel Fwd Exam Detailed
[2020-06-09 09:31] LABS: Basophils # 0.1 10^3/uL (0.0-0.1); Basophils % 0.8 %; Eosinophils # 0.3 10^3/uL (0.0-0.8); Hematocrit 47.5 % (37.0-47.0); Hemoglobin 15.5 g/dL (11.5-15.3); Lymphocytes # 2.5 10^3/uL (0.8-4.8); Lymphocytes % 29.9 %; Mean Corpuscular HGB Conc 32.6 g/dL (30.0-36.0); Mean Corpuscular Hemoglobin 29.6 pg (28.0-34.0); Mean Corpuscular Volume 90.6 fL (81-99); Mean Platelet Volume 10.2 fL (7.4-10.4); Monocytes # 0.5 10^3/uL (0.2-0.9); Monocytes % 5.9 %; Neutrophils # 5.08 10^3/uL (1.8-7.7); Neutrophils % 60.2 %; Nucleated Red Blood Cells % 0 %; Platelet Count 275 10^3/cmm (130-400); Red Blood Count 5.24 10^6/uL (4.1-5.3); White Blood Count 8.5 10^3/uL (4.0-10.0)
--- NOTE | 2020-06-09 09:34 | PC.NURSE ---
patient denies suicide and homicide but is to be admitted for med changes
[2020-06-09 09:42] LABS: Amphetamines Screen Urine Positive (Negative); Barbiturates Screen Urine Negative (Negative); Benzodiazepines Screen Urine Negative (Negative); Cocaine Screen Urine Negative (Negative); Opiate Screen Urine Negative (Negative); PCP Screen Urine Negative (Negative); THC Screen Urine Positive (Negative)
[2020-06-09 10:17] LABS: Alanine Aminotransferase 21 U/L (0-33); Albumin Level 4.6 g/dL (3.5-5.2); Alkaline Phosphatase 109 IU/L (35-105); Anion Gap 14.1 (5-19); Aspartate Amino Transferase 18 U/L (0-32); Blood Urea Nitrogen 10 mg/dL (6-20); Calcium 9.7 mg/dL (8.5-10.5); Carbon Dioxide 26 mmol/L (22-29); Chloride 104 mmol/L (98-107); Creatinine Clr Calc Pharmacy 122.0411; Globulin 3.2 g/dL (1.3-4.6); Glomerular Filtration Rate 99.6 mL/min (90-130); Glucose 91 mg/dL (65-115); Osmolality Calculated 289 mOsm/kg (285-295); Potassium 4.1 mmol/L (3.5-5.1); Sodium 140 mmol/L (136-145); Total Bilirubin 0.5 mg/dL (0.15-1.2); Total Protein 7.8 g/dL (6.6-8.7)
[2020-06-09 10:23] LABS: Acetaminophen < 5.0 ug/mL (10-30); Alcohol Level < 10 mg/dL (0-10); Salicylate < 0.3 mg/dL (3-10)
[2020-06-09 10:24] LABS: HCG, Serum Qual Negative (Negative)
[2020-06-09 13:27] VITALS: BP 131/93; PULSE 99; RESP 18; TEMP 36.2; O2SAT 99
[2020-06-09 20:09] VITALS: BP 103/71; PULSE 90; RESP 15; TEMP 37; O2SAT 97
[2020-06-09] MEDS: trazodone 50 mg Tablet PO (22:01)
[2020-06-10 06:00] VITALS: BP 101/66; PULSE 85; RESP 16; TEMP 36.7; O2SAT 97
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
[2020-06-10 14:00] VITALS: BP 114/79; PULSE 88; RESP 16; TEMP 36.8; O2SAT 100
[2020-06-10] MEDS: nicotine 2 mg Gum BUCCAL (18:27)
[2020-06-10 19:59] VITALS: BP 120/89; PULSE 99; RESP 17; TEMP 36.6; O2SAT 98
[2020-06-10] MEDS: hyDROXYzine 25 mg Capsule 50 MG PO (21:22)
[2020-06-10] MEDS: trazodone 50 mg Tablet PO (21:23)
[2020-06-11 06:00] VITALS: BP 109/66; PULSE 69; RESP 15; TEMP 36.8; O2SAT 96
[2020-06-11 14:00] VITALS: BP 106/68; PULSE 75; RESP 18; TEMP 36.4; O2SAT 94
[2020-06-11] MEDS: nicotine 2 mg Gum BUCCAL (14:21)
--- NOTE | 2020-06-11 15:10 | PC.RESP ---
SMOKING CESSATION INFORMATION SENT TO PATIENT.
--- NOTE | 2020-06-11 17:34 | P.PN_ITS ---
Subjective NPU Subjective: Interval history: Jen presents today reporting that she is feeling better slightly she reports that she is so frustrated with herself as she is completing these rehabs but has been allowing the circumstances of her life to create excuses or reasons why she ends up using. The loss of her mom and her significant other have been a serious below but she still endorses not getting up and is working with the treatment team/social workers to explore some longer-term options in the community. Mental Status Exam MSE Comments: This is an overweight white female, with adequate dress, grooming, and eye contact. No abnormal movements. Mostly cooperative with exam in mild distress. Speech was more normal rate and volume. Mood described as anxious about what is going to happen, affect congruent. Thought process, organized. Thought content: patient did endorse some passive wish but denied suicidal or homicidal ideations, there were no delusions reported or noted, patient denied any auditory or visual hallucinations. Attention, concentration, and memory appear intact but were not formally tested. He is alert and oriented times three. Insight and judgment appear fair. Impulse control is impaired. Vitals/I&O/Wt Last Vital Signs Temp 97.6 F 06/11/20 14:00 Pulse 75 06/11/20 14:00 Resp 18 06/11/20 14:00 BP 106/68 06/11/20 14:00 Pulse Ox 94 06/11/20 14:00 Data NPU : 06/09/20 09:25 06/09/20 09:25 A&P Additional A&P Information (1) Auditory hallucinations: (2) Visual hallucinations: (3) Methamphetamine use: (4) Bipolar 1 disorder, depressed, moderate: This is a 29-year-old white female with a long history of mental health and addiction issues who presents with recent losses and active addiction who presents trying to explore what intake for her to maintain her sobriety. 1. Continue current medication. 2. Continue every 15 minute checks for safety. 3. Encourage individual, group and milieu therapy. 4. Encourage sober living treatment at the highest level to which she is rhonda ling to commit after discharge. Involuntary Hold Information 96 Hour Hold: 96 Hour Involuntary Admission: No Attestations NPU Medical Necessity Statement*: Inpatient hospitalization is medically necessary and the clinically appropriate intervention at this time. We will monitor medications and make changes as indicated. Likely length of stay 2-4 days. Coding Level of Care Code Acute [id number] Software Engineer for Chg Jett
[2020-06-11 19:48] VITALS: BP 100/63; PULSE 66; RESP 17; TEMP 36.8; O2SAT 91
[2020-06-11] MEDS: hyDROXYzine 25 mg Capsule 50 MG PO (20:40)
--- NOTE | 2020-06-11 21:49 | PC.NURSE ---
PM Assessment Pt is talkative with staff. Pt states, I see cartoon faces in the windows. Denies AH. Denies SI/HI. Pt v/s are normal, lung/heart sounds normal. Pt denies anxiety at this time. Will continue to monitor.
[2020-06-12 06:00] VITALS: BP 97/66; PULSE 50; RESP 17; TEMP 36.7; O2SAT 97
--- NOTE | 2020-06-12 11:34 | PM.NPN ---
Subjective NPU Subjective: Interval history: Jen presents today with a fairly laidback presentation. She is reporting slight improvement but still tired and recovering. She is tolerating the restarting of her medications. She is still focused on working with the treatment team on a possible extended stay sober living treatment facility after discharge. She is eating fine and sleeping a little better. Mental Status Exam MSE Comments: This is an overweight white female, with adequate dress, grooming, and eye contact. No abnormal movements except for mild psychomotor retardation. Mostly cooperative with exam in no acute no acute distress. Speech was decreased rate and volume. Mood described as tired, affect congruent. Thought process, organized. Thought content: patient denied suicidal or homicidal ideations, there were no delusions reported or noted, patient denied any auditory or visual hallucinations. Attention, concentration, and memory appear intact but were not formally tested. He is alert and oriented times three. Insight and judgment appear fair. Impulse control is impaired. Vitals/I&O/Wt Last Vital Signs Temp 98.1 F 06/12/20 06:00 Pulse 50 L 06/12/20 06:00 Resp 17 06/12/20 06:00 BP 97/66 06/12/20 06:00 Pulse Ox 97 06/12/20 06:00 Data NPU : 06/09/20 09:25 06/09/20 09:25 A&P Additional A&P Information (1) Auditory hallucinations: (2) Visual hallucinations: (3) Methamphetamine use: (4) Bipolar 1 disorder, depressed, moderate: This is a 29-year-old white female with a long history of mental health and addiction issues who presents with recent losses and active addiction who presents trying to explore what intake for her to maintain her sobriety. 1. Continue current medication. 2. Continue every 15 minute checks for safety. 3. Encourage individual, group and milieu therapy. 4. Encourage sober living treatment at the highest level to which she is willing to commit after discharge. Involuntary Hold Information 96 Hour Hold: 96 Hour Involuntary Admission: No Attestations NPU Medical Necessity Statement*: Inpatient hospitalization is medically necessary and the clinically appropriate intervention at this time. We will monitor medications and make changes as indicated. Likely length of stay 2-4 days. Coding Level of Care Code Acute Administrative Nursing Supervisor for Yoel Frausto
[2020-06-12 14:00] VITALS: BP 110/71; PULSE 67; RESP 18; TEMP 36.9
[2020-06-12] MEDS: nicotine 2 mg Gum BUCCAL ×2 (17:47→20:51)
[2020-06-12 20:09] VITALS: BP 118/86; PULSE 83; RESP 19; TEMP 36.7; O2SAT 98
[2020-06-12] MEDS: hyDROXYzine 25 mg Capsule 50 MG PO (20:29)
[2020-06-12] MEDS: trazodone 50 mg Tablet PO (20:30)
--- NOTE | 2020-06-12 21:27 | PC.NURSE ---
PM ASSESSMENT PT IS READING IN HER BED. HER V/S ARE WNL. HEART/LUNG SOUNDS UNREMARKABLE. PT DENIES AH/VH. PT DENIES SI/HI. PT CONFIRMS FEELING LONELY AND DOWN BECAUSE ROOMMATE WAS DISCHARGED TODAY. PT DENIES ANXIETY AND PAIN AT THIS TIME.
[2020-06-13 05:47] VITALS: BMI 25.8
[2020-06-13 06:00] VITALS: BP 104/66; PULSE 64; RESP 17; TEMP 36.7; O2SAT 95
--- NOTE | 2020-06-13 11:14 | PM.NPN ---
Subjective NPU Subjective: Interval history: Jen presents today reporting she is feeling better. She is been doing some thinking and talking to her family and at this point she is not really thinking that a longer inpatient stay is the answer. At this point she is focusing on the possibility of outpatient treatment/rehab and trying to get her life together otherwise. She reports that she is eating better and sleep is improving. Mental Status Exam MSE Comments: This is an overweight white female, with adequate dress, grooming, and eye contact. No abnormal movements except for resolving psychomotor retardation. Mostly cooperative with exam in no acute distress. Speech was more normal rate and volume. Mood described as a little better, affect congruent. Thought process, organized. Thought content: patient denied suicidal or homicidal ideations, there were no delusions reported or noted, patient denied any auditory or visual hallucinations. Attention, concentration, and memory appear intact but were not formally tested. He is alert and oriented times three. Insight and judgment appear fair. Impulse control is impaired, and improving. Vitals/I&O/Wt Last Vital Signs Temp 98.1 F 06/13/20 06:00 Pulse 64 06/13/20 06:00 Resp 17 06/13/20 06:00 BP 104/66 06/13/20 06:00 Pulse Ox 95 06/13/20 06:00 Weight last 48 hrs Weight 72.575 kg Data NPU : 06/09/20 09:25 06/09/20 09:25 A&P Additional A&P Information (1) Auditory hallucinations: (2) Visual hallucinations: (3) Methamphetamine use: (4) Bipolar 1 disorder, depressed, moderate: This is a 29-year-old white female with a long history of mental health and addiction issues who presents with recent losses and active addiction who presents trying to explore what intake for her to maintain her sobriety. 1. Continue current medication. 2. Continue every 15 minute checks for safety. 3. Encourage individual, group and milieu therapy. 4. Encourage sober living treatment at the highest level to which she is willing to commit after discharge. 5. And for discharge in the next 24 to 48 hours. Involuntary Hold Information 96 Hour Hold: 96 Hour Involuntary Admission: No Attestations NPU Medical Necessity Statement*: Inpatient hospitalization is medically necessary and the clinically appropriate intervention at this time. We will monitor medications and make changes as indicated. Likely length of stay 1-3 days. Likely plan for discharge tomorrow. Coding Level of Care Code Acute Golf Course Designer for Yoel Frausto
[2020-06-13 14:00] VITALS: BP 116/87; PULSE 81; RESP 16; TEMP 36.7; O2SAT 96
[2020-06-13] MEDS: nicotine 2 mg Gum BUCCAL (15:56)
[2020-06-13 19:47] VITALS: BP 107/80; PULSE 88; RESP 18; TEMP 36.7; O2SAT 97
[2020-06-13] MEDS: trazodone 50 mg Tablet PO (20:37)
[2020-06-13] MEDS: hyDROXYzine 25 mg Capsule 50 MG PO (20:37)
[2020-06-14 06:00] VITALS: BP 97/59; PULSE 61; RESP 16; TEMP 36.8; O2SAT 96
[2020-06-14] MEDS: nicotine 2 mg Gum BUCCAL (12:00)
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
[2020-06-14 13:07] VITALS: BP 97/59; PULSE 61; RESP 16; TEMP 36.8; O2SAT 96
== END 2020-06-14 13:35 | disposition home or self-care (01) | DRG 885 ==
LOC: ER 09:23 → NP 11:26
PROVIDERS: Admitting Provider Psychiatry & Neurology Psychiatry; Emergency Provider Physician Assistant; PCP Family Medicine; Visit Provider Psychiatry & Neurology Psychiatry
DX: F31.32 Bipolar disorder, current episode depressed, moderate (principal); R44.0 Auditory hallucinations; R44.1 Visual hallucinations; F15.10 Other stimulant abuse, uncomplicated; Z59.0 Homelessness; F17.210 Nicotine dependence, cigarettes, uncomplicated; Z91.5 Personal history of self-harm
CPT/HCPCS: 12345; 80053; 80306; 80307; 84703; 85025; 99284

== ENCOUNTER 2020-11-14 13:33 | Emergency (ER) | payer MEDICAID, SELFPAY ==
[2020-11-14 13:59] VITALS: BP 131/81; PULSE 95; RESP 15; TEMP 36.6; O2SAT 98; BMI 26.6
[2020-11-14 14:29] VITALS: BP 125/94; PULSE 88; RESP 14; O2SAT 97
[2020-11-14 14:45] LABS: Add Urine Microscopic? YES; Bilirubin Urine 1+ (Negative); Blood Urine 2+ (Negative); Glucose Urine UA Norm (Normal); Ketones Urine Negative (Negative); Leukocyte Esterase Urine Negative (Negative); Nitrate Urine Negative (Negative); Protein Urine Neg (Negative); Urine Appearance Hazy (CLEAR); Urine Color Yellow (Yellow); Urobilinogen Urine 1 mg/dL (Negative); pH Urine 5 (5-7)
[2020-11-14 14:48] LABS: WBC Urine RARE /hpf (0-5)
[2020-11-14 14:49] LABS: Bacteria Urine 1+ /hpf; Mucus Urine 2+ /hpf
[2020-11-14 14:50] LABS: Add Urine Culture? No
[2020-11-14] MEDS: tetanus-dipt-pertussis 0.5 mL SDV IM (15:37)
[2020-11-14] MEDS: amoxicillin-clav 875-125 mg Tablet 1 TAB PO (15:41)
[2020-11-14] MEDS: sodium chloride 0.9% 1,000 ML 999 ML IV ×2 (16:00→16:32)
[2020-11-14 16:05] LABS: Basophils # 0.1 10^3/uL (0.0-0.1); Basophils % 0.7 %; Eosinophils # 0.2 10^3/uL (0.0-0.8); Eosinophils % 2.2 %; Hematocrit 39.9 % (37.0-47.0); Hemoglobin 13.2 g/dL (11.5-15.3); Lymphocytes # 2.8 10^3/uL (0.8-4.8); Lymphocytes % 28.8 %; Mean Corpuscular HGB Conc 33.1 g/dL (30.0-36.0); Mean Corpuscular Hemoglobin 30.1 pg (28.0-34.0); Mean Corpuscular Volume 91.1 fL (81-99); Mean Platelet Volume 10.2 fL (7.4-10.4); Monocytes # 0.6 10^3/uL (0.2-0.9); Monocytes % 6.2 %; Neutrophils # 5.91 10^3/uL (1.8-7.7); Neutrophils % 61.9 %; Nucleated Red Blood Cells % 0 %; Platelet Count 290 10^3/cmm (130-400); Red Blood Count 4.38 10^6/uL (4.1-5.3); Red Cell Distribution Width 11.9 % (12.1-15.1); White Blood Count 9.6 10^3/uL (4.0-10.0)
[2020-11-14 16:25] LABS: Alanine Aminotransferase 32 U/L (0-33); Albumin Level 4.1 g/dL (3.5-5.2); Alkaline Phosphatase 87 IU/L (35-105); Blood Urea Nitrogen 21 mg/dL (6-20); Calcium 8.8 mg/dL (8.5-10.5); Carbon Dioxide 23 mmol/L (22-29); Chloride 102 mmol/L (98-107); Globulin 2.8 g/dL (1.3-4.6); Glomerular Filtration Rate 98.9 mL/min (90-130); Glucose 78 mg/dL (65-115); Osmolality Calculated 288 mOsm/kg (285-295); Sodium 138 mmol/L (136-145); Total Bilirubin 0.4 mg/dL (0.15-1.2); Total Protein 6.9 g/dL (6.6-8.7)
[2020-11-14] MEDS: rabies vaccine 2.5 unit SDV IM (16:25)
[2020-11-14 16:28] LABS: Anion Gap 16.7 (5-19); Aspartate Amino Transferase 29 U/L (0-32); Potassium 3.7 mmol/L (3.5-5.1)
--- NOTE | 2020-11-14 17:39 | ED_ITS ---
HPI - Animal Bite General: Chief Complaint: Animal Bite Stated Complaint: Pitbull Bite/Dehydrated Time Seen by Provider: 11/14/20 13:57 History of Present Illness: HPI narrative: The patient is a 30-year-old female who comes to the ER complaining she is dehydrated and she was at a house where there was a dog outside who bit her on the left calf. She does not know who the dog's is and it was just left chained outside. Not in a fenced in area. She does not know exactly where she was. She is a chronic methamphetamine abuser. She screened positive for her suicidal statements but says she does not feel suicidal but then makes statements like I am not here for that today, I do not have any trazodone because when I do I want to take the entire bottle etc. complaint: animal bite Animal: dog Description of animal: unknown animal and immunizations unknown Mechanism: bite Pain description: sharp Context: unprovoked Associated symptoms: Reports no associated symptoms; Deny headache(s) Review of Systems General: Reports: 10 or more systems reviewed and unremarkable except in HPI and below Const: Denies: fatigue Eyes: Denies: change in vision, blurry vision or eye redness ENMT: Denies: throat pain, swelling of lips/tongue, ear or mastoid pain or nasal congestion Card: Denies: chest pain, palpitations, irregular heart rhythm, edema, dyspnea on exertion or orthopnea Resp: Denies: dyspnea, productive cough or non-productive cough GI: Denies: abdominal pain, diarrhea or GI cramping : Denies: flank pain, difficulty voiding, urinary frequency or urinary urgency Musc: Denies: neck pain, back pain, extremity pain, joint pain, joint redness, limited range of motion or muscle weakness Skin/Breast: Reports: other (Left calf dog bite); Denies: rash, pruritus, erythema, skin pain or skin tenderness Neuro: Denies: headache(s), numbness in extremities, weakness in extremities, sensory changes, difficulty walking, dizziness, confusion or Slurred speech present Psych: Denies: anxiety or depression Endo: Denies: polyuria All/Imm: Denies: urticaria, throat swelling or tongue swelling PFS ED PFSH: Medical History (Updated 11/14/20 @ 17:44 by Flash Guillen MD) Depression Methamphetamine use Surgical History (Updated 10/31/19 @ 15:27 by Lisa Freedman APN, ISHAN) H/O pelvic surgery (~2018) fractured pelvis, skull, neck--- only pelvis needed repair Family History (Updated 10/31/19 @ 15:28 by Lisa Freedman APN, ISHAN) Mother Cancer B- cell lymphoma Father Cancer Lung CA Hypertension Denies family history of Diabetes Clotting disorder Hyperlipidemia Chronic kidney disease (CKD) Bleeding disorder Stroke Social History (Updated 06/09/20 @ 08:17 by Ceferino Dang RN) Smoking and tobacco status: current some day smoker cigarettes Packs smoked per day: 0.25 Quit status (tobacco): has quit using tobacco Year quit tobacco: 09/2019 Alcohol intake: current Alcohol intake frequency: holidays/special occasions only Current gender identity: Female Female Reproductive History: Date of last menstrual period: 11/09/20 Physical Exam Const: COMMON NORMALS: no acute distress, average body habitus, patient oriented x3, no limitations, healthy appearing, alert and well nourished GENERAL APPEARANCE: cooperative, comfortable, well kempt and well developed ORIENTATION/CONSCIOUSNESS: Yes awake, Yes oriented to person, Yes oriented to place and Yes oriented to time HENMT: COMMON NORMALS: normocephalic, external ears normal and Normal external nose present HEAD & SCALP: normal to inspection and normocephalic NOSE: Normal external nose present EXTERNAL EAR: Yes external ears normal MOUTH: Normal oral and palatal mucosa present THROAT: posterior oropharynx normal Eye: COMMON NORMALS: Equal, round and reactive pupils present and EOMs intact bilaterally GENERAL EYE: appearance normal, both eyes and all related structu res PUPIL: Yes Equal, round and reactive pupils present Neck/C-Spine: COMMON NORMALS: full ROM, no lymphadenopathy, no meningeal signs and no JVD GENERAL: Yes normal visual inspection Lymph: LYMPHATIC: no lymphadenopathy noted Chest: COMMONS NORMALS: normal inspection of the chest and normal palpation of entire chest wall Resp: COMMON NORMALS: normal respiratory effort, No retractions, No use of accessory muscles, clear to auscultation bilaterally and percussion normal EFFORT & INSPECTION: Yes able to speak in complete sentences AUSCULTATION: clear to auscultation bilaterally PERCUSSION: percussion normal Cardio: COMMON NORMALS: no JVD, regular rate, regular rhythm, S1 normal heart sound present, S2 normal heart sound present and Peripheral pulses 2+ throughout RATE: regular rate RHYTHM: regular rhythm HEART SOUNDS: S1 normal heart sound present and S2 normal heart sound present PERIPHERAL PULSES: Peripheral pulses 2+ throughout GI: COMMON NORMALS: Normal to inspection, nondistended, normoactive bowel sounds present, Soft to palpation, non-tender and no masses INSPECTION: Yes normal to inspection PALPATION: Yes Soft to palpation : COMMON NORMALS: Yes no CVA tenderness BLADDER/KIDNEY EXAM: Yes no CVA tenderness Back/Pelvis: COMMON NORMALS: no CVA tenderness, thoracic and lumbar spine normal to inspection, no thoracic nor lumbar tenderness and thoraco-lumbar ROM normal Extremity: COMMON NORMALS: normal to inspection, full ROM, capillary refill normal, no joint enlargement and no pedal edema GENERAL: Yes normal exam except as noted Neuro: COMMON NORMALS: patient oriented x3, CN's II-XII intact bilaterally, moves all extremities, no focal motor deficits, no sensory deficits noted and gait normal SENSORIUM/ORIENTATION: Yes alert, Yes oriented to person, Yes oriented to place and Yes oriented to time MENINGEAL SIGNS: Yes no meningeal signs Psych: COMMON NORMALS: mental status grossly normal, Normal thought process present, cooperative, normal affect and speech normal APPEARANCE: Yes well kempt ATTITUDE: Yes calm SPEECH: Yes normal speech THOUGHT PROCESS: Normal thought process present Skin: COMMON NORMALS: no rashes or lesions noted NARRATIVE SKIN EXAM: She has a small bite to her left calf. Not bleeding. Neurovascularly intact distal to injury. GENERAL SKIN EXAM: no rashes or lesions noted Course Vital Signs: Vital signs: Vital Signs Temperature 98 F 11/14/20 13:59 Pulse Rate 88 11/14/20 14:29 Respiratory Rate 14 11/14/20 14:29 Blood Pressure 125/94 11/14/20 14:29 Pulse Oximetry 97 11/14/20 14:29 MDM - Animal Bite MDM Narrative: Medical decision making narrative: She has a small dog bite to her left calf. This dog was apparently outside the residence where she was but does not know whose dog it was it was just changed to a tree. She does not know the vaccination status or the optometrist president/practice owner. Will be treated as a wild dog bite. Notified police to take a report. Given her rabies vaccination and local immunoglobulin. She will be given the schedule of day 3, 7, 14 to also get immunization. She also complained of lightheadedness which after a liter of fluids has resolved. She also complained of chronic suicidal thoughts and was seen by Dr. Lindsay who said she is not actively suicidal and recommended discharge. Lab Data: Labs: Lab Results 11/14/20 11/14/20 11/14/20 Range/Units 14:29 16:00 16:00 WBC 9.6 (4.0-10.0) 10^3/ uL RBC 4.38 (4.1-5.3) 10^6/u L Hgb 13.2 (11.5-15.3) g/dL Hct 39.9 (37.0-47.0) % MCV 91.1 (81-99) fL MCH 30.1 (28.0-34.0) pg MCHC 33.1 (30.0-36.0) g/dL RDW 11.9 L (12.1-15.1) % Plt Count 290 (130-400) 10^3/c mm MPV 10.2 (7.4-10.4) fL Neut % (Auto) 61.9 % Lymph % (Auto) 28.8 % [place] % (Auto) 6.2 % Eos % (Auto) 2.2 % Baso % (Auto) 0.7 % Neut # (Auto) 5.91 (1.8-7.7) 10^3/u L Lymph # (Auto) 2.8 (0.8-4.8) 10^3/u L [place] # (Auto) 0.6 (0.2-0.9) 10^3/u L Eos # (Auto) 0.2 (0.0-0.8) 10^3/u L Baso # (Auto) 0.1 (0.0-0.1) 10^3/u L Nucleated RBC % (a uto) 0 % Nucleated RBCs # 0.0 /100WBC Sodium 138 (136-145) mmol/L Potassium 3.7 (3.5-5.1) mmol/L Chloride 102 (98-107) mmol/L Carbon Dioxide 23 (22-29) mmol/L Anion Gap 16.7 (5-19) BUN 21 H (6-20) mg/dL Creatinine 0.7 (0.5-0.9) mg/dL GFR Calculation 98.9 (90-130) mL/min Glucose 78 (65-115) mg/dL Calculated Osmolal ity 288 (285-295) mOsm/k g Calcium 8.8 (8.5-10.5) mg/dL Total Bilirubin 0.4 (0.15-1.2) mg/dL AST 29 (0-32) U/L ALT 32 (0-33) U/L Alkaline Phosphata se 87 (35-105) IU/L Total Protein 6.9 (6.6-8.7) g/dL Albumin 4.1 (3.5-5.2) g/dL Globulin 2.8 (1.3-4.6) g/dL Urine Color Yellow (Yellow) Urine Appearance Hazy A (CLEAR) Urine pH 5 (5-7) Ur Specific Gravit y 1.030 (1.005-1.030) Urine Protein Neg (Negative) Urine Glucose (UA) Norm (Normal) Urine Ketones Negative (Negative) Urine Blood 2+ H (Negative) Urine Nitrate Negative (Negative) Urine Bilirubin 1+ H (Negative) Urine Urobilinogen 1 H (Negative) mg/dL Ur Leukocyte Evelia ase Negative (Negative) Urine RBC None (0-2) /hpf Urine WBC Rare (0-5) /hpf Ur Squamous Epith Cells 5-10 H (0-5) /hpf Amorphous Sediment Not Reportable Urine Bacteria 1+ H (NONE) /hpf Urine Mucus 2+ /hpf Discharge Plan Discharge Patient Disposition: Home Clinical Impression: Dog bite Condition: Stable Prescriptions: New cephalexin 500 mg capsule 500 mg PO BID 7 Days Qty: 14 RF: 0 No Action trazodone 50 mg Tablet 50 mg PO BEDTIME PRN (Reason: Insomnia) 30 Days Qty: 30 RF: 1 mirtazapine [Remeron] 15 mg tablet 15 mg PO DAILY@0900 30 Days Qty: 30 RF: 1 sertraline 50 mg tablet 100 mg PO DAILY@0900 30 Days Qty: 30 RF: 1 hydroxyzine pamoate 25 mg Capsule 50 mg PO Q6H PRN (Reason: Anxiety) 30 Days Qty: 120 RF: 1 Discharge Orders: Discharge ED (Routine); Ordered 11/14/20 Ordered By: Flash Guillen Referrals: Charito Burroughs MD [Primary Care Provider] - Patient Instructions: Animal Bite (ED), Opioid Safety Activity Restrictions/Additional Instructions: You have sustained a dog bite from an unknown dog. We will be treating you with an antibiotic to prevent an infection. Also the vaccination status of this dog is unknown and will be treated as a wild animal. Please come back on November 17, November 22, November 28 for repeat vaccinations of rabies. We have given you the initial dose today. Return to the ER with any worsening symptoms at any time. Coding Level of Care Code ED Maintenance Man for Yoel Fwranjan Exam Comprehensive
--- NOTE | 2020-11-14 19:15 | PC.NURSE ---
received report from [facility]
[2020-11-14 19:16] VITALS: BP 122/92; PULSE 82; RESP 16; O2SAT 96
== END 2020-11-14 19:18 | disposition home or self-care (01) ==
PROVIDERS: Emergency Provider Family Medicine; PCP Family Medicine
DX: S81.852A Open bite, left lower leg, initial encounter (principal); W54.0XXA Bitten by dog, initial encounter; F17.210 Nicotine dependence, cigarettes, uncomplicated; Z23 Encounter for immunization; Z20.3 Contact with and (suspected) exposure to rabies; Z29.14 Encounter for prophylactic rabies immune globulin
CPT/HCPCS: 80053; 81001; 85025; 90375; 90471; 90675; 90715; 96360; 96361; 96372; 99283; J7030